=== PATIENT | male | born 1950 | race Caucasian/White ===

== ENCOUNTER → 2016-12-19 | Outpatient (CLI) | payer OTHER ==
[~2016-12-19] MED LIST: AMLO-114 PO; CHOL1TAB42 PO; CLON0.1T12 PO; DUTACAP PO; GLC/500 PO; LISI-786 PO; OMEG10007 PO
--- NOTE | 2017-01-13 12:39 | CODING QUERY MEDICAL NECESSITY ---
SUPPORTING DIAGNOSIS NEEDED A supporting diagnosis is required for the test/procedure performed on this patient in order for us to be reimbursed by the patient's insurance. Please provide a supporting diagnosis for the following test/procedure listed below next to the test name along with your signature. *If there is no additional diagnosis for this patient that would support the following test/procedure please document that below next to the test/procedure. Test(s)/Procedure(s) that require a supporting diagnosis: * PSA DIAGNOSIS: * DOS: 12/19/16 Provider Signature: Date: Thank you Addie Pastor [employer] Information Management Once completed, please kindly fax back to [phone] For questions please call [phone]
== END | disposition home or self-care (01) ==
LOC: C.LAB 19:27
PROVIDERS: ATTEND Urology
DX: Z13.220 Encounter for screening for lipoid disorders (principal); N40.1 Benign prostatic hyperplasia with lower urinary tract symptoms

== ENCOUNTER → 2017-01-23 | Outpatient (CLI) | payer OTHER ==
[2017-01-23 12:21] LABS: BLOOD UREA NITROGEN 18 mg/dl (7-18); BUN/CREATININE RATIO 19.8 (10-20); CALCIUM 8.9 mg/dl (8.5-10.1); CARBON DIOXIDE 29 mmol/L (21-32); CHLORIDE 105 mmol/L (98-107); CHOLESTEROL 195 mg/dl (0-200); CREATININE 0.89 mg/dl (0.60-1.40); GLUCOSE 139 mg/dl (70-99); POTASSIUM 3.5 mmol/L (3.5-5.1); SODIUM 142 mmol/L (136-145); TRIGLYCERIDES 151 mg/dl (0-150); VERY LOW DENSITY LIPOPROT CALC 30 mg/dl
[2017-01-23 12:24] LABS: CHOLESTEROL/HDL RATIO 5.6; HDL CHOLESTEROL 35 mg/dl; LDL CHOLESTEROL CALCULATED 130 mg/dl
[2017-01-23 13:06] LABS: ESTIMATED AVERAGE GLUCOSE 157 mg/dl; HA1C FLAG Normal (Normal)
== END | disposition home or self-care (01) ==
LOC: C.LABPVFM 08:17
PROVIDERS: ATTEND Nurse Practitioner
DX: I10 Essential (primary) hypertension (principal); E11.9 Type 2 diabetes mellitus without complications

== ENCOUNTER → 2017-01-28 | Outpatient (CLI) | payer OTHER, BC | END | disposition home or self-care (01) | LOC: C.LABPVFM 13:32 | PROVIDERS: ATTEND Nurse Practitioner | DX: Z11.59 Encounter for screening for other viral diseases (principal) ==

== ENCOUNTER → 2017-02-27 | Outpatient (CLI) | payer OTHER, BC | END | disposition home or self-care (01) | LOC: C.PATHSPEC 17:13 | PROVIDERS: ATTEND Urology | DX: C67.9 Malignant neoplasm of bladder, unspecified (principal) ==

== ENCOUNTER → 2017-07-21 | Day surgery (SDC) | payer OTHER, BC ==
[2017-06-30 07:48] VITALS: Ht 182.9 cm; Wt 113.6 kg
[~2017-07-21] VITALS: Ht 182.9 cm; Wt 113.6 kg
[~2017-07-21] MED LIST changes: +500ML BSS 0.3ML EPI 1:1000PF IRRIG ONE; +ACETAMINOPHEN 325 MG TAB PO PRN; +AMVISC PLUS 0.8ML SYRINGE INT OCU ONE; +ATROPINE SULFATE 0.1 MG/ML 5ML SYR IV PRN; +BRIMONIDINE TART 0.2% OP SOLN PER DROP CHARGE ONE; +BSS FLUSH ONE; +ENDOCOAT 0.85ML SYRINGE INT OCU ONE; +EpHEDrine SULFATE INJ 50 MG/ML AMP IV PRN; +EpINEphrine INJ 1MG/ML AMP 1 MG/ML AMP ONE; +FENTANYL CITRATE INJ 50 MCG/1 ML 2 ML VIAL ONE; +HydrALAZINE HCL 20 MG/ML VIAL ONE; +LACTATED RINGER'S 1000ML 500 ML IV SCH; +LIDOCAINE 4% OP SOLN DROP CHARGE ONE; +LIDOCAINE 4% OP SOLN DROP CHARGE OPL SCH; +LIDOCAINE HCL 1% MPF 2 ML VIAL ONE; +MIDAZOLAM HCL 1 MG/ML 2ML VIAL ONE; +MOXIFLOXACIN OPH SOLN PER DROP CHARGE ONE; +ONDANSETRON INJ 2 MG/ML 2 ML VIAL IV PRN; +POVIDONE-IODINE OP SOLN 30 ML BTL ONE; +PROPARACAINE 0.5% OP SOLN PER DROP CHARGE OPL SCH; +SODIUM CHLORIDE 0.9% INJ 10 ML VIAL ONE; +TOBRAMYCIN/DEXAMETHASONE OPH OINT PER APPLN CHARGE ONE
[2017-07-21] MEDS: PHENYLEPHRINE HCL 2.5% OP SOLN PER DROP CHARGE OPL SCH ×2 (08:00→08:11)
[2017-07-21] MEDS: TROPICAMIDE 1% OP SOLN PER DROP CHARGE OPL SCH ×2 (08:01→08:12)
[2017-07-21] MEDS: CYCLOPENTOLATE HCL 1% OP SOLN PER DROP CHARGE OPL SCH ×2 (08:02→08:13)
[2017-07-21] MEDS: KETOROLAC 0.5% OP SOLN PER DROP CHARGE OPL SCH ×2 (08:03→08:14)
[2017-07-21] MEDS: MOXIFLOXACIN OPH SOLN PER DROP CHARGE OPL SCH ×2 (08:05→08:16)
--- NOTE | 2017-07-21 08:09 | History & Physical Bridge - [place] ---
H&P Re-Evaluation Bridge Note: I have examined the patient, reviewed the History & Physical and in the interval since the performance of the History & Physical I have noted the following changes of clinical significance: No changes noted
--- NOTE | 2017-07-21 09:36 | Discharge Instructions-SurgCtr ---
Discharge Instructions Date of Service Jul 21, 2017. Visit Reason for Visit: Cataract Left Eye Discharge Discharge Diagnosis / Problem: cataract left eye Discharge Goals Goal(s): Improve function Medications Stopped Medications Name(s): held metformin for four days Activity Recommendations Activity Limitations: per Instructions/Follow-up section Lifting Limitations: no more than 5 pounds Anesthesia . Post Anesthesia Instructions: If you have had General Anesthesia or IV Sedation: * Do not drive today. * Resume driving when surgeon permits. * Do not make important decisions or sign legal documents today. * Call surgeon for: 1. Temperature elevations greater than 101 degrees F. 2. Uncontrollable pain. 3. Excessive bleeding. 4. Persistent nausea and vomiting. 5. Medication intolerance (nausea, vomiting or rash). * For nausea and vomiting use only clear liquids such as: tea, soda, bouillon until nausea subsides, then gradually increase diet as tolerated. * If you have any concerns or questions, call your surgeon's office. If physician is unavailable and it is an emergency, call 911 or go to the nearest emergency room. . Instructions / Follow-Up Instructions / Follow-Up ACTIVITY RECOMMENDATIONS: * Light activities * You may walk outside, read, watch television. * Mild irritation and blurred vision are common for the first few days, redness around the white part of the eye is common. MEDICATIONS: Resume previous medications unless instructed otherwise by your surgeon. Eye drops (today and tomorrow): Cipro - one drop in operative eye every 2 hours while awake Prednisolone 1% - one drop in operative eye every 2 hours while awake Ilevro - one drop operative eye 1 times daily SPECIAL CARE INSTRUCTIONS: * If any problems or concerns, please call Dr. Peters's office at . * Keep plastic shield taped over eye to sleep at night. * Keep plastic shield taped over eye except to administer eye drops. * Keep plastic shield on until office visit the following day. FOLLOW UP VISIT: Follow-up with Dr. Peters in the [place] office as scheduled. If not already scheduled, please call the office at . Diet Recommendations Home Diet: resume previous diet Procedures Procedures Performed: Left Cataract Phacoemulsification With Intraocular Lens Implant Pending Studies Studies pending at discharge: no Medical Emergencies . Who to Call and When: Medical Emergencies: If at any time you feel your situation is an emergency, please call 911 immediately. . Non-Emergent Contact Non-Emergency issues call your: Identity Management Developer . . "Provider Documentation" section prepared by Alberto Peters. .
--- NOTE | 2017-07-21 09:37 | [facility] Post Operative Brief Note ---
Immediate Operative Summary Operative Date Jul 21, 2017. Pre-Operative Diagnosis Left Eye Cataract Post-Operative Diagnosis Same Procedure(s) Performed Left Cataract Phacoemulsification With Intraocular Lens Implant and anterior vitrectomy Surgeon Dr Peters Cafeteria Cook Surgeon(s) None Estimated Blood Loss 0ml Findings cataract left eye Fluids (cc crystalloids) see anesthesia record Specimens None Drains none Anesthesia local with sedation Complication(s) None Disposition Recovery Room / PACU
[2017-07-21 09:38] VITALS: TEMP 36.7
--- NOTE | 2017-07-21 10:09 | Anesthesiology Progress Note ---
Anesthesia Post Op Note Date & Time Jul 21, 2017 at 10:08 Vital Signs Pain Intensity: 3 Vital Signs Past 12 Hours Date Time Temp Pulse Resp B/P (MAP) Pulse Ox O2 Delivery O2 Flow Rate FiO2 07/21/17 09:38 36.7 63 16 157/90 (112) 95 Room Air 07/21/17 07:40 36.8 62 20 174/94 (120) 96 Room Air Notes Mental Status: alert / awake / arousable, participated in evaluation Nausea / Vomiting: adequately controlled Pain: adequately controlled Airway Patency, RR, SpO2: stable & adequate BP & HR: stable & adequate Hydration State: stable & adequate Anesthetic Complications: no major complications apparent Anesthetic Complications: level of amnesia appropriate for MAC
[2017-07-21 10:10] VITALS: BP 133/79; PULSE 54; O2SAT 95
--- NOTE | 2017-07-21 10:32 | OPERATIVE REPORT ---
DATE OF OPERATION: 07/21/2017 PREOPERATIVE DIAGNOSIS: Cataract, left eye. POSTOPERATIVE DIAGNOSIS: Same. PROCEDURE PERFORMED: Phacoemulsification cataract extraction with anterior vitrectomy and intraocular lens placement, left eye. COMPLICATIONS: None. ESTIMATED BLOOD LOSS: None. ANESTHESIA: Local with sedation. DESCRIPTION OF PROCEDURE: After informed consent was obtained in the holding area, the patient was wheeled back to the operating room where cardiac monitoring leads and oxygen by nasal cannula was administered by anesthesia. Gentle IV sedation was given, and the patient's left eye was prepped and draped in usual sterile fashion. Wire lid speculum was placed in the left eye and the operating microscope swung into position. Using 0.12 forceps and a supersharp blade, a paracentesis port was made 2 o'clock hours away from the 3 o'clock position of patient's left eye. A 1% nonpreserved lidocaine was injected into the anterior chamber for anesthesia. A 2.0 mm keratome blade was then used to make a shelved clear cornea incision at the 3 o'clock position of the patient's left eye. The anterior chamber was filled with EndoCoat and Amvisc in a soft shell fashion and a curvilinear capsulorrhexis was performed with the cystotome and Utrata forceps. BSS on a hydrodissection cannula was then used to hydrodissect the lens nucleus away from the capsular bag. The phacoemulsification handpiece was then used in a stop and chop fashion. When the first crack was made dividing the lens in half, the lens was then rotated and 1 heminucleus started to dive south. It was rescued using viscoelastic to float it back into the anterior chamber and it was phacoemulsified. The second heminucleus was rescued in such a manner as well and phacoemulsified. An anterior vitrectomy was then carried out and inspection was done to observe for the anterior lens capsule. There did not seem to be enough support of the anterior lens capsule for a sulcus lens, so that the primary incision was enlarged and then a Bausch and Lomb L122 UV 15.0 Diopter anterior chamber lens was placed in the eye over top a lens glide. The lens glide was removed and the vitrector was used to make a peripheral iridotomy at the 6 o'clock position of the patient's left eye. 3 interrupted 10-0 nylon sutures were placed through the primary incision and the vitrector was used to remove the viscoelastic material from the anterior chamber. The wounds were hydrated and noted to be watertight. A wire lid speculum was removed from the eye. Vigamox, brimonidine and TobraDex ointment were placed on the eye and the eye was shielded. The patient tolerated the procedure well and was taken to recovery area in stable condition. I attest to the content of the Intraoperative Record and any orders documented therein. Any exceptions are noted below. MTDD
== END | disposition home or self-care (01) ==
LOC: X.SURG 07:27
PROVIDERS: ATTEND Ophthalmology
DX: H25.12 Age-related nuclear cataract, left eye (principal); E11.36 Type 2 diabetes mellitus with diabetic cataract; I10 Essential (primary) hypertension; Z87.891 Personal history of nicotine dependence; Z79.899 Other long term (current) drug therapy

== ENCOUNTER → 2017-07-29 | Outpatient (CLI) | payer OTHER, BC ==
[~2017-07-29] MED LIST changes: -500ML BSS 0.3ML EPI 1:1000PF IRRIG ONE; -ACETAMINOPHEN 325 MG TAB PO PRN; -AMVISC PLUS 0.8ML SYRINGE INT OCU ONE; -ATROPINE SULFATE 0.1 MG/ML 5ML SYR IV PRN; -BRIMONIDINE TART 0.2% OP SOLN PER DROP CHARGE ONE; -BSS FLUSH ONE; -ENDOCOAT 0.85ML SYRINGE INT OCU ONE; -EpHEDrine SULFATE INJ 50 MG/ML AMP IV PRN; -EpINEphrine INJ 1MG/ML AMP 1 MG/ML AMP ONE; -FENTANYL CITRATE INJ 50 MCG/1 ML 2 ML VIAL ONE; -HydrALAZINE HCL 20 MG/ML VIAL ONE; -LACTATED RINGER'S 1000ML 500 ML IV SCH; -LIDOCAINE 4% OP SOLN DROP CHARGE ONE; -LIDOCAINE 4% OP SOLN DROP CHARGE OPL SCH; -LIDOCAINE HCL 1% MPF 2 ML VIAL ONE; -MIDAZOLAM HCL 1 MG/ML 2ML VIAL ONE; -MOXIFLOXACIN OPH SOLN PER DROP CHARGE ONE; -ONDANSETRON INJ 2 MG/ML 2 ML VIAL IV PRN; -POVIDONE-IODINE OP SOLN 30 ML BTL ONE; -PROPARACAINE 0.5% OP SOLN PER DROP CHARGE OPL SCH; -SODIUM CHLORIDE 0.9% INJ 10 ML VIAL ONE; -TOBRAMYCIN/DEXAMETHASONE OPH OINT PER APPLN CHARGE ONE
[2017-07-29 18:19] LABS: BLOOD UREA NITROGEN 16 mg/dl (7-18); BUN/CREATININE RATIO 18.6 (10-20); CALCIUM 8.7 mg/dl (8.5-10.1); CARBON DIOXIDE 27 mmol/L (21-32); CHLORIDE 106 mmol/L (98-107); CREATININE 0.85 mg/dl (0.60-1.40); GLUCOSE 139 mg/dl (70-99); POTASSIUM 3.5 mmol/L (3.5-5.1); SODIUM 140 mmol/L (136-145)
[2017-07-30 06:16] LABS: ESTIMATED AVERAGE GLUCOSE 177 mg/dl; HA1C FLAG Normal (Normal)
== END | disposition home or self-care (01) ==
LOC: C.LABPVFM 15:16
PROVIDERS: ATTEND Nurse Practitioner
DX: I10 Essential (primary) hypertension (principal); E11.9 Type 2 diabetes mellitus without complications; E55.9 Vitamin D deficiency, unspecified

== ENCOUNTER → 2017-08-04 | Day surgery (SDC) | payer OTHER, BC ==
[2017-08-01 10:52] VITALS: Ht 182.9 cm; Wt 113.6 kg
[~2017-08-04] VITALS: Ht 182.9 cm; Wt 113.6 kg
[~2017-08-04] MED LIST changes: +500ML BSSPLUS 0.5ML EPI1:1000 IRRIG ONE; +ACETAMINOPHEN 325 MG TAB PO PRN; +ATROPINE SULFATE 0.1 MG/ML 5ML SYR IV PRN; +BSS FLUSH ONE; +BUPIVACAINE HCL 0.75% 10 ML AMP/VIAL ONE; +DEXAMETHASONE SOD INJ 4 MG/ML VIAL ONE; +EpHEDrine SULFATE 50MG/5ML SYR ONE; +EpHEDrine SULFATE INJ 50 MG/ML AMP IV PRN; +EpINEphrine INJ 1MG/ML AMP 1 MG/ML AMP ONE; +FENTANYL CITRATE INJ 50 MCG/1 ML 2 ML VIAL ONE; +HYALURONIDASE HUMAN 150 UNIT/ML INJ ONE; +LACTATED RINGER'S 1000ML 500 ML IV SCH; +LIDOCAINE HCL 2% 2 ML VIAL (20MG/ML) ONE; +MIDAZOLAM HCL 1 MG/ML 2ML VIAL ONE; +NEOMYCIN/POLYMYX/DEXAMETH OP OINT PER APP CHARGE ONE; +OCUCOAT 1 ML SOLN IO ONE; +ONDANSETRON INJ 2 MG/ML 2 ML VIAL ONE; +POVIDONE-IODINE OP SOLN (SURGERY CNTR CHARGING ONLY) ONE; +PROPARACAINE 0.5% OP SOLN PER DROP CHARGE OPL SCH; +PROPOFOL IV EMULSION 10 MG/ML 20 ML VIAL IV ONE; +TIMOLOL MALEATE 0.5% OP SOLN PER DROP CHARGE ONE; +VANCOMYCIN HCL 1000MG/20ML VIAL ONE
[2017-08-04] MEDS: PHENYLEPHRINE HCL 2.5% OP SOLN PER DROP CHARGE OPL SCH ×2 (10:38→10:43)
[2017-08-04] MEDS: TROPICAMIDE 1% OP SOLN PER DROP CHARGE OPL SCH ×2 (10:39→10:44)
--- NOTE | 2017-08-04 12:21 | Anesthesia Progress Nt - [facility] ---
Anesthesia Post Op Note Date & Time Aug 04, 2017 at 12:20 Vital Signs Pain Intensity: 2 Vital Signs Past 12 Hours Date Time Temp Pulse Resp B/P (MAP) Pulse Ox O2 Delivery O2 Flow Rate FiO2 08/04/17 10:30 36.5 66 16 174/92 (119) 95 Room Air Notes Mental Status: alert / awake / arousable, participated in evaluation Pt Amnestic to Procedure: Yes Nausea / Vomiting: adequately controlled Pain: adequately controlled Airway Patency, RR, SpO2: stable & adequate BP & HR: stable & adequate Hydration State: stable & adequate Anesthetic Complications: no major complications apparent Earlier entry was mistakenly premature. At 1400, pt is now in phase 2 ready for discharge.
--- NOTE | 2017-08-04 12:55 | [facility] Operative Report ---
Operative Report Date of Service Aug 04, 2017. Operative Report PREOPERATIVE DIAGNOSIS: Retained lens fragments, left eye. ICD10 CODE: H59.022 POSTOPERATIVE DIAGNOSIS: same. PROCEDURE: 1. Pars plana vitrectomy, 23 gauge. All to the left eye. CPT CODE: 24491 SURGEON: León Hernandes D.O. COMPLICATIONS: None. ESTIMATED BLOOD LOSS: None. SPECIMENS: None. ANESTHESIA: General with LMA and Retrobulbar block. INDICATIONS FOR PROCEDURE: Surgery is indicated to decrease risk of vision loss and potentially improve vision. CONSENT: The risks, benefits and alternatives were discussed with the patient including but not limited to decreased visual acuity, failure to achieve desired results, loss of the eye, infection, pain, glaucoma, lens changes, retinal tears, retinal detachment, the need for more procedures, drooping of the eyelid, blindness, and double vision. The patient is aware of risks and consents to the surgery. Consent is signed and on the chart. OPERATION AND FINDINGS: The patient was brought to the operating room where the patient was identified by name, date, and medical record number. The surgical site was confirmed with the informed written consent. The patient was placed under general anesthesia by the anesthesiology team after which a 50:50 mixture of 2% lidocaine and 0.75% bupivacaine with hyaluronidase was administered in a standard retrobulbar fashion. A total of 4 ml was administered without difficulty. The patient was then prepped and draped in the usual sterile manner for retinal surgery. A wire lid speculum was placed and an Jose De Jesus 23-gauge trocar cannula system was employed. The inferior nasal trocar cannula was first placed in an angled fashion 3.75mm posterior to the surgical limbus and the infusion cannula was inserted into this cannula after which the intravitreal position was verified prior to turning the infusion on. Two more trocar cannulas were then inserted in an angled fashion, one in the superior temporal, and one in the superior nasal quadrant both 3.75mm posterior to the surgical limbus. A light pipe and vitrector were then introduced into the eye and the BIOM wide angle viewing system was brought into place. Posterior inspection revealed retained cataract fragments. Standard core vitrectomy was performed the vitreous was insured to be totally detached from the posterior pole with the aid of the vitrector. There were also noted cataract remnants posterior to the iris and these were removed with the vitrector and iris was swept and no vitreous to the corneal wounds was found. At this point scleral depression was performed for 360 degrees and no retinal tears or detachments were noted. The trocar cannulas were then removed and found to be water tight. The intraocular pressure was found to be within normal limits by palpation and subconjunctival injections of vancomycin and dexamethasone were administered inferiorly and superiorly. The wire lid speculum was removed. Maxitrol was applied to the surface of the eye. A light patch and shield were taped over the surface of the eye and the patient left the Operating Room in stable condition having tolerated the procedure well. DISPOSITION: The patient has an appointment the following morning in the Ophthalmology Clinic. The patient is to call immediately if there are any problems overnight. I attest to the content of the Intraoperative Record and any orders documented therein. Any exceptions are noted below.
--- NOTE | 2017-08-04 12:56 | Discharge Instructions-SurgCtr ---
Discharge Instructions Date of Service Aug 04, 2017. Visit Reason for Visit: Retained Lens Discharge Discharge Diagnosis / Problem: same Discharge Goals Goal(s): Improve function Medications Stopped Medications Name(s): metformin stopped 2 days ago Activity Recommendations Activity Limitations: per Instructions/Follow-up section Anesthesia . Post Anesthesia Instructions: If you have had General Anesthesia or IV Sedation: * Do not drive today. * Resume driving when surgeon permits. * Do not make important decisions or sign legal documents today. * Call surgeon for: 1. Temperature elevations greater than 101 degrees F. 2. Uncontrollable pain. 3. Excessive bleeding. 4. Persistent nausea and vomiting. 5. Medication intolerance (nausea, vomiting or rash). * For nausea and vomiting use only clear liquids such as: tea, soda, bouillon until nausea subsides, then gradually increase diet as tolerated. * If you have any concerns or questions, call your surgeon's office. If physician is unavailable and it is an emergency, call 911 or go to the nearest emergency room. . Instructions / Follow-Up Instructions / Follow-Up * May take Tylenol if needed for discomfort. * Do NOT remove eye shield. * NO straining, heavy lifting (>15 pounds) or bending below waist. * Avoid getting water or soap directly into operative eye. * Do NOT rub eye. If you experience increasing eye pain not relieved by medication, please contact us immediately at [phone]. If you are unable to reach someone at the above number, call [phone] and ask to speak with the EYE DOCTOR AUDIO VISUAL PRODUCTION SPECIALIST. Inform them that you are a Dr. Hernandes patient who had recent surgery. Diet Recommendations Home Diet: resume previous diet Procedures Procedures Performed: Left Eye Vitrectomy 23 Gauge for Retained Lens Pending Studies Studies pending at discharge: no Medical Emergencies . Who to Call and When: Medical Emergencies: If at any time you feel your situation is an emergency, please call 911 immediately. . Non-Emergent Contact Non-Emergency issues call your: Mcat Instructor . . "Provider Documentation" section prepared by León Hernandes. .
[2017-08-04 13:50] VITALS: BP 174/94; PULSE 57; TEMP 36.3; O2SAT 96
== END | disposition home or self-care (01) ==
LOC: X.SURG 10:14
PROVIDERS: ATTEND Ophthalmology
DX: H59.022 Cataract (lens) fragments in eye following cataract surgery, left eye (principal); I10 Essential (primary) hypertension; E11.9 Type 2 diabetes mellitus without complications; Z87.891 Personal history of nicotine dependence; Z68.34 Body mass index [BMI] 34.0-34.9, adult; Z98.890 Other specified postprocedural states; E66.9 Obesity, unspecified; Z80.0 Family history of malignant neoplasm of digestive organs

== ENCOUNTER → 2017-11-17 | Day surgery (SDC) | payer OTHER, BC ==
[2017-10-13 14:31] VITALS: Ht 182.9 cm; Wt 113.6 kg
[~2017-11-17] VITALS: Ht 182.9 cm; Wt 113.6 kg
[~2017-11-17] MED LIST changes: +500ML BSS 0.3ML EPI 1:1000PF IRRIG ONE; -500ML BSSPLUS 0.5ML EPI1:1000 IRRIG ONE; +AMVISC PLUS 0.8ML SYRINGE INT OCU ONE; +BRIMONIDINE TART 0.2% OP SOLN PER DROP CHARGE ONE; -BUPIVACAINE HCL 0.75% 10 ML AMP/VIAL ONE; -DEXAMETHASONE SOD INJ 4 MG/ML VIAL ONE; +ENDOCOAT 0.85ML SYRINGE INT OCU ONE; -EpHEDrine SULFATE 50MG/5ML SYR ONE; -HYALURONIDASE HUMAN 150 UNIT/ML INJ ONE; +LIDOCAINE 4% OP SOLN DROP CHARGE ONE; +LIDOCAINE 4% OP SOLN DROP CHARGE OPR SCH; +LIDOCAINE HCL 1% MPF 2 ML VIAL ONE; +MIX: 3ML BSS AND 1ML EPI(PF) TOP ONE; +MOXIFLOXACIN OPH SOLN PER DROP CHARGE ONE; -NEOMYCIN/POLYMYX/DEXAMETH OP OINT PER APP CHARGE ONE; -OCUCOAT 1 ML SOLN IO ONE; -POVIDONE-IODINE OP SOLN (SURGERY CNTR CHARGING ONLY) ONE; +POVIDONE-IODINE OP SOLN 30 ML BTL ONE; -PROPARACAINE 0.5% OP SOLN PER DROP CHARGE OPL SCH; +PROPARACAINE 0.5% OP SOLN PER DROP CHARGE OPR SCH; -TIMOLOL MALEATE 0.5% OP SOLN PER DROP CHARGE ONE; +TOBRAMYCIN/DEXAMETHASONE OPH OINT PER APPLN CHARGE ONE; -VANCOMYCIN HCL 1000MG/20ML VIAL ONE
[2017-11-17] MEDS: PHENYLEPHRINE HCL 2.5% OP SOLN PER DROP CHARGE OPR SCH ×2 (10:10→10:15)
[2017-11-17] MEDS: TROPICAMIDE 1% OP SOLN PER DROP CHARGE OPR SCH ×2 (10:11→10:16)
[2017-11-17] MEDS: CYCLOPENTOLATE HCL 1% OP SOLN PER DROP CHARGE OPR SCH ×2 (10:12→10:17)
[2017-11-17] MEDS: KETOROLAC 0.5% OP SOLN PER DROP CHARGE OPR SCH ×2 (10:13→10:18)
[2017-11-17] MEDS: MOXIFLOXACIN OPH SOLN PER DROP CHARGE OPR SCH ×2 (10:14→10:24)
--- NOTE | 2017-11-17 11:57 | [facility] Operative Report ---
Operative Report Operative Date Nov 17, 2017. Pre-Operative Diagnosis Cataract Right Eye Post-Operative Diagnosis Same Procedure(s) Performed Right Cataract Phacoemulsification With Intraocular Lens Implant Surgeon Dr. Peters Wildlife Biostation Research Ecologist Surgeon(s) None Estimated Blood Loss 0 Findings cataract right eye Fluids (cc crystalloids) see anesthesia record Specimens None Drains none Anesthesia local with General LMA Complication(s) None Disposition Recovery Room / PACU Implants [id number] 17.5 Indications decreased vision right eye Description of Procedure After informed consent was obtained in the holding area the patient was wheeled back to the operating room where cardiac monitoring leads and general anesthesia was administered by Anesthesia. The patient's right eye was prepped and draped in usual sterile fashion. A wire lid speculum was placed into the right eye and the operating microscope was swung into position. Using 0.12 forceps and a Supersharp blade a paracentesis port was made 2 o'clock hours away from the 9 o'clock position of the patient's right eye. 1% non-preserved Lidocaine was then injected into the anterior chamber for anesthesia. A 2.0 mm keratotome blade was then used to make a shelved clear corneal incision at the 9 o'clock position of the right eye. Amvisc was injected into the anterior chamber and a cystotome and Utrata forceps were used to perform a curvilinear capsulorrhexis. BSS on a hydrodissection cannula was used to hydrodissect the lens nucleus away from the capsular bag. The phacoemulsification handpiece was then used in a stop and chop fashion to remove the lens nucleus. The irrigation and aspiration handpiece was then used to remove the residual cortical material. Amvisc was injected into the capsular bag and anterior chamber and a Bausch & Lomb MX60 17.5 Diopter intraocular lens was injected into the capsular bag. Irrigation and aspiration handpiece was used to remove the residual viscoelastic material. The wounds were hydrated and noted to be watertight. The wire lid speculum was removed from the eye. Vigamox, Brimonidine, and TobraDex ointment were placed on the eye and it was shielded. It should be noted that EndoCoat was used extensively during the case to protect the cornea endothelium. DISPOSITION: The patient tolerated the procedure well, was extubated, and was wheeled to the post anesthesia care unit in stable condition. I attest to the content of the Intraoperative Record and any orders documented therein. Any exceptions are noted below. I attest to the content of the Intraoperative Record and any orders documented therein. Any exceptions are noted below.
--- NOTE | 2017-11-17 11:59 | Discharge Instructions-SurgCtr ---
Discharge Instructions Date of Service Nov 17, 2017. Visit Reason for Visit: Right Cataract Discharge Discharge Diagnosis / Problem: cataract right eye Discharge Goals Goal(s): Improve function Medications Stopped Medications Name(s): METFORMIN STOPPED ON FRIDAY Activity Recommendations Activity Limitations: per Instructions/Follow-up section Lifting Limitations: no more than 5 pounds Anesthesia . Post Anesthesia Instructions: If you have had General Anesthesia or IV Sedation: * Do not drive today. * Resume driving when surgeon permits. * Do not make important decisions or sign legal documents today. * Call surgeon for: 1. Temperature elevations greater than 101 degrees F. 2. Uncontrollable pain. 3. Excessive bleeding. 4. Persistent nausea and vomiting. 5. Medication intolerance (nausea, vomiting or rash). * For nausea and vomiting use only clear liquids such as: tea, soda, bouillon until nausea subsides, then gradually increase diet as tolerated. * If you have any concerns or questions, call your surgeon's office. If physician is unavailable and it is an emergency, call 911 or go to the nearest emergency room. . Instructions / Follow-Up Instructions / Follow-Up ACTIVITY RECOMMENDATIONS: * Light activities * You may walk outside, read, watch television. * Mild irritation and blurred vision are common for the first few days, redness around the white part of the eye is common. MEDICATIONS: Resume previous medications unless instructed otherwise by your surgeon. Eye drops (today and tomorrow): Cipro - one drop in operative eye every 2 hours while awake Prednisolone 1% - one drop in operative eye every 2 hours while awake Bromfenac - one drop in operative eye once daily SPECIAL CARE INSTRUCTIONS: * If any problems or concerns, please call Dr. Peters's office at . * Keep plastic shield taped over eye to sleep at night. * Keep plastic shield taped over eye except to administer eye drops. * Keep plastic shield on until office visit the following day. FOLLOW UP VISIT: Follow-up with Dr. Peters in the [place] office as scheduled. If not already scheduled, please call the office at . Diet Recommendations Home Diet: resume previous diet Procedures Procedures Performed: Right Cataract Phacoemulsification With Intraocular Lens Implant Pending Studies Studies pending at discharge: no Medical Emergencies . Who to Call and When: Medical Emergencies: If at any time you feel your situation is an emergency, please call 911 immediately. . Non-Emergent Contact Non-Emergency issues call your: Irrigator . . "Provider Documentation" section prepared by Alberto Peters. .
[2017-11-17 12:42] VITALS: TEMP 36.6
[2017-11-17 13:10] VITALS: BP 159/85; PULSE 54; O2SAT 94
--- NOTE | 2017-11-17 13:20 | Anesthesia Progress Nt - [facility] ---
Anesthesia Post Op Note Date & Time Nov 17, 2017 at 13:20 Vital Signs Pain Intensity: 0 Vital Signs Past 12 Hours Date Time Temp Pulse Resp B/P (MAP) Pulse Ox O2 Delivery O2 Flow Rate FiO2 11/17/17 13:10 54 18 159/85 (109) 94 Room Air 11/17/17 12:42 36.6 54 18 178/95 (122) 94 Room Air 11/17/17 12:36 36.4 56 16 147/84 97 Room Air 11/17/17 12:30 153/84 11/17/17 12:28 60 12 11/17/17 12:28 60 12 96 11/17/17 12:26 147/82 11/17/17 12:23 57 25 144/81 96 11/17/17 12:23 58 25 11/17/17 12:20 170/110 11/17/17 12:18 59 17 96 11/17/17 12:18 58 17 11/17/17 12:15 163/98 11/17/17 12:13 63 23 95 11/17/17 12:13 63 23 11/17/17 12:12 165/108 11/17/17 12:08 64 18 11/17/17 12:08 64 18 94 11/17/17 12:05 124/99 11/17/17 12:05 36.5 65 16 139/80 98 Nasal Cannula 3 11/17/17 12:04 139/80 11/17/17 12:03 65 25 11/17/17 12:03 65 25 95 11/17/17 10:01 36.8 60 22 155/90 (111) 93 Room Air Notes Mental Status: alert / awake / arousable, participated in evaluation Pt Amnestic to Procedure: Yes Nausea / Vomiting: adequately controlled Pain: adequately controlled Airway Patency, RR, SpO2: stable & adequate BP & HR: stable & adequate Hydration State: stable & adequate Anesthetic Complications: no major complications apparent
== END | disposition home or self-care (01) ==
LOC: X.SURG 09:48
PROVIDERS: ATTEND Ophthalmology
DX: H26.9 Unspecified cataract (principal); E66.9 Obesity, unspecified; Z68.34 Body mass index [BMI] 34.0-34.9, adult; Z98.49 Cataract extraction status, unspecified eye; Z88.1 Allergy status to other antibiotic agents; Z98.890 Other specified postprocedural states; Z87.891 Personal history of nicotine dependence; Z85.828 Personal history of other malignant neoplasm of skin

== ENCOUNTER → 2018-01-29 | Outpatient (CLI) | payer OTHER, BC ==
[~2018-01-29] MED LIST changes: -500ML BSS 0.3ML EPI 1:1000PF IRRIG ONE; -ACETAMINOPHEN 325 MG TAB PO PRN; -AMVISC PLUS 0.8ML SYRINGE INT OCU ONE; -ATROPINE SULFATE 0.1 MG/ML 5ML SYR IV PRN; -BRIMONIDINE TART 0.2% OP SOLN PER DROP CHARGE ONE; -BSS FLUSH ONE; -ENDOCOAT 0.85ML SYRINGE INT OCU ONE; -EpHEDrine SULFATE INJ 50 MG/ML AMP IV PRN; -EpINEphrine INJ 1MG/ML AMP 1 MG/ML AMP ONE; -FENTANYL CITRATE INJ 50 MCG/1 ML 2 ML VIAL ONE; -LACTATED RINGER'S 1000ML 500 ML IV SCH; -LIDOCAINE 4% OP SOLN DROP CHARGE ONE; -LIDOCAINE 4% OP SOLN DROP CHARGE OPR SCH; -LIDOCAINE HCL 1% MPF 2 ML VIAL ONE; -LIDOCAINE HCL 2% 2 ML VIAL (20MG/ML) ONE; -MIDAZOLAM HCL 1 MG/ML 2ML VIAL ONE; -MIX: 3ML BSS AND 1ML EPI(PF) TOP ONE; -MOXIFLOXACIN OPH SOLN PER DROP CHARGE ONE; -ONDANSETRON INJ 2 MG/ML 2 ML VIAL ONE; -POVIDONE-IODINE OP SOLN 30 ML BTL ONE; -PROPARACAINE 0.5% OP SOLN PER DROP CHARGE OPR SCH; -PROPOFOL IV EMULSION 10 MG/ML 20 ML VIAL IV ONE; -TOBRAMYCIN/DEXAMETHASONE OPH OINT PER APPLN CHARGE ONE
[2018-01-29 10:30] LABS: HEMOGLOBIN A1C 7.2 % (4.5-5.6)
[2018-01-29 10:39] LABS: BLOOD UREA NITROGEN 12 mg/dl (7-18); CALCIUM 8.4 mg/dl (8.5-10.1); CARBON DIOXIDE 27 mmol/L (21-32); CHOLESTEROL 169 mg/dl (0-200); CREATININE 0.83 mg/dl (0.60-1.40); GLUCOSE 139 mg/dl (70-99); POTASSIUM 3.3 mmol/L (3.5-5.1); SODIUM 139 mmol/L (136-145)
[2018-01-29 10:55] LABS: LDL CHOLESTEROL CALCULATED 111 mg/dl
== END | disposition home or self-care (01) ==
LOC: C.LAB 07:00
PROVIDERS: ATTEND Nurse Practitioner
DX: Z00.00 Encounter for general adult medical examination without abnormal findings (principal); E11.9 Type 2 diabetes mellitus without complications; I10 Essential (primary) hypertension; C67.9 Malignant neoplasm of bladder, unspecified

== ENCOUNTER → 2018-02-10 | Outpatient (CLI) | payer OTHER, BC | END | disposition home or self-care (01) | LOC: C.PATHSPEC 11:25 | PROVIDERS: ATTEND Urology | DX: C67.9 Malignant neoplasm of bladder, unspecified (principal) ==

== ENCOUNTER 2020-04-06 05:08 | Inpatient (IN) ==
--- NOTE | 2020-01-27 14:40 | Anesthesiology Consultation ---
Date of Service January 27, 2020 Assessment & Plan (1) Encounter for pre-operative examination: Chart Review Chart Review: Pending: Refer to Additional Notes / Consult section (updated preop labs ) and Patient NOT seen in Pre Admission Testing Pt was a reschedule for surgery from 01/20/20 (was seen in PAT 12/06/19)- will need updated preop labs prior to surgery. Seen by PCP 01/06/20= "I personally reviewed the chest x-ray, EKG results as well as labs. Reviewed the patient's medication list. Patient is cleared for surgery." PCP expecting blood sugars to be mild elevated post op and throughout recovery process. He is to continue to monitor and call PCP if consistently >200- otherwise continue current medication. EKG stable from last year. History Surgery Operation Date: 02/17/20 09:15 Proposed Procedures p Right Total Knee Arthroplasty - Aren Trejo MD Height/Weight Height: 6 ft Weight: 106.594 kg Allergies Allergy/AdvReac Type Severity Reaction Status Date / Time amoxicillin Allergy Intermediate MOUTH SORES Verified 01/21/20 08:43 Medications Home Medications Medication Instructions Recorded Confirmed Last Taken cholecalciferol (vitamin D3) 5,000 unit PO BID 12/03/18 01/06/20 Unknown [Vitamin D3] clonidine HCl 0.1 mg PO HS 12/03/18 01/06/20 Unknown dutasteride-tamsulosin 1 cap PO QAM 12/03/18 01/06/20 Unknown loratadine [Claritin] 10 mg PO QAM 12/03/18 01/06/20 Unknown omega 1-img-ilx-fish oil [Fish Oil] 1 cap PO HS 12/03/18 01/06/20 Unknown ascorbate calcium-bioflavonoid 1 tab PO QPM 01/14/19 01/06/20 Unknown [Monique-C with Bioflavonoids] potassium chloride 10 mEq 10 meq PO DAILY #90 tab 04/12/19 01/06/20 Unknown tablet,extended release timolol maleate 0.25 % eye drops 1 drp OP UD ml 07/20/19 01/06/20 Unknown lancets 33 gauge #100 ea 08/02/19 01/06/20 Unknown blood sugar diagnostic See Rx Instructions .ROUTE 09/09/19 01/06/20 Unknown .COMPLEX PRN #100 strip amlodipine 10 mg PO HS 11/30/19 01/06/20 Unknown glucos sul [id number]-[id number]-rrbrg-C-Mn 1 cap PO PM 11/30/19 01/06/20 Unknown [Glucosamine Chondroitin] lisinopril-hydrochlorothiazide 1 tab PO QAM 11/30/19 01/06/20 Unknown multivitamin 1 tab PO DAILY 11/30/19 01/06/20 Unknown dulaglutide 0.75 mg/0.5 mL See Rx Instructions .ROUTE 12/17/19 01/21/20 Unknown subcutaneous pen injector .COMPLEX #4 milliliter Past Medical History Medical History (Updated 01/27/20 @ 14:44 by Yaritza Knight PA-C) Bladder cancer Dx'ed 2000- s/p TURBT 2000 and 2010 BPH (benign prostatic hyperplasia) Cancer BCC --> MOHS Diabetes mellitus TYPE 2; NIDDM HTN (hypertension) Knee pain Obesity Past Family History Family History Mother Family history of diabetes mellitus Colorectal cancer Hypertension Gastric adenocarcinoma Denies family history of Ovarian cancer Prostate cancer Myocardial infarction Breast cancer Past Surgical History Surgical History (Updated 01/27/20 @ 14:44 by Yaritza Knight PA-C) H/O oral surgery GROWTH REMOVED (BENIGN) History of arthroscopy of right knee History of biopsy of bladder History of bladder surgery TURBT X 2 (MALIGNANT 2000, BENIGN 2010) History of cataract extraction BILATERAL History of colonoscopy History of cystoscopy History of hernia repair INGUINAL HERNIA REPAIR (RIGHT) History of tonsillectomy S/P Mohs surgery for basal cell carcinoma Social History Smoking Status: Former smoker tobacco type: cigarettes Do You Dip or Chew Tobacco: No Smoking End Date: 20 years ago Hx Alcohol Use: Yes Alcohol type: beer alcohol intake frequency: holidays/special occasions only Hx Substance Use: No substance use type: does not use Testing Electrocardiogram Date: 12/06/19 Sinus rhythm at 61 bpm with premature atrial complexes. Septal infarct cited on or before January 18, 2019. When compared to EKG from January 18, 2019 PACs are now present. Chest X-Ray Date: 12/06/19 Findings: + NAD Echocardiogram Date: 02/03/19 EF: 50-55% LV Function: normal RWMA: + none Other Findings: + LVH (concentric- moderate ) Valvular Disease: + no significant valvular disease Grade I diastolic dysfunction
--- NOTE | 2020-04-03 16:03 | History & Physical Report ---
"Date of Service April 03, 2020 Assessment & Plan (1) Primary osteoarthritis of right knee: Treatment options discussed. Patient has failed conservative therapy as above. Plan is for right total knee arthroplasty on 04/06/20 at [facility]. Risks, benefits and alternatives to surgery including but not limited to infection, DVT, pain, stiffness, need for revision surgery, damage to blood vessels, damage to nerves, PE, , were discussed with the patient and they wish to proceed. Will plan on aspirin 81mg BID x 30d for DVT prophylaxis. Will plan on HHPT upon discharge. All questions answered. He will follow up post operatively. COVID status unknown. History of Present Illness Chief Complaint: Right knee pain Primary Care Provider: AMBERLY Titus Patient is a 69 year old male with PMHx significant for HTN, DM2, BPH, bladder ca with long standing history of right knee pain. He has failed conservative therapy including cortisone injections, visco injections, and antiinflammatories. His pain is affecting his ability to carry out normal daily activities. He would like to proceed with right knee replacement. He had been previously scheduled for surgery last year but was cancelled due to an elevated A1c. This has come down and is now less than 7.5 and he would like to proceed with surgery. Patient denies headaches, sweats, fevers, chills, double vision, blurred vision, cough, sore throat, dysphagia, chest pain, sob, wheezing, n/v/d/c, numbness, tingling, fatigue, urinary symptoms, mood disorders. ROS positive for right knee pain and stiffness. Allergies Allergy/AdvReac Type Severity Reaction Status Date / Time amoxicillin Allergy Intermediate MOUTH SORES Verified 03/31/20 14:08 Home Medications Home Medications Medication Instructions Recorded Confirmed Type cholecalciferol (vitamin D3) 5,000 unit PO BID 12/03/18 03/31/20 History [Vitamin D3] clonidine HCl 0.1 mg PO HS 12/03/18 03/31/20 History loratadine [Claritin] 10 mg PO QAM 12/03/18 03/31/20 History omega 2-lsr-nno-fish oil [Fish Oil] 1 cap PO HS 12/03/18 03/31/20 History ascorbate calcium-bioflavonoid 1 tab PO QPM 01/14/19 03/31/20 History [Monique-C with Bioflavonoids] potassium chloride 10 mEq 10 meq PO DAILY #90 tab 04/12/19 03/31/20 Rx tablet,extended release timolol maleate 0.25 % eye drops 1 drp OP UD ml 07/20/19 03/31/20 History lancets 33 gauge #100 ea 08/02/19 01/06/20 Rx blood sugar diagnostic See Rx Instructions .ROUTE 09/09/19 03/31/20 Rx .COMPLEX PRN #100 strip amlodipine 10 mg PO HS 11/30/19 03/31/20 History glucos sul 4WLv-ivq-ieaax-C-Mn 1 cap PO PM 11/30/19 03/31/20 History [Glucosamine Chondroitin] lisinopril-hydrochlorothiazide 1 tab PO QAM 11/30/19 03/31/20 History multivitamin 1 tab PO QPM 11/30/19 03/31/20 History dulaglutide 0.75 mg/0.5 mL See Rx Instructions .ROUTE 12/17/19 03/31/20 Rx subcutaneous pen injector .COMPLEX #4 milliliter dutasteride-tamsulosin 1 cap PO QAM 03/31/20 03/31/20 History Past Med/Surg History Family History Mother Family history of diabetes mellitus Colorectal cancer Hypertension Gastric adenocarcinoma Denies family history of Ovarian cancer Prostate cancer Myocardial infarction Breast cancer Social History Preferred Language: Lebanese Communication Ability: Effective Business Continuity Manager Required: No Beliefs That Will Affect Care: None Current Living Situation: Significant Other Feels Safe at Home: Yes Smoking Status: Former smoker Tobacco Type: cigarettes ; Second Hand Exposure: Yes ( A CHILD) ; Hx Alcohol Use: Yes Alcohol type: beer Hx Substance Use: No Seatbelt Use: always Review of Systems All systems reviewed & are unremarkable except as noted in HPI & below Physical Exam Constitutional: well developed and well nourished; no acute distress Eyes: PERRL, conjunctivae normal, anicteric sclerae ENMT: external ear and nose normal, oropharynx normal Neck: trachea midline, no thyromegaly Respiratory: normal respiratory effort, lungs clear to auscultation Cardiovascular: RRR, no murmur, no edema Musculoskeletal: Right knee: ROM 0-120, tenderness medial joint line. Stable to valgus and varus stress tests. Positive Eli's. Skin: no rashes, warm and dry Neurologic: patellar DTR's 2+ bilat, sensation intact Psychiatric: A+Ox3, euthymic affect Results & Data Laboratory Results [facility] [address] [place] [address] / Director: Aren Ramos M.D. Clinical Laboratory Report Name: SUNI MCFARLAND Acct: [id number] Status: REG CLI : 1950 [facility] [place] Date: 04/03/20 Age: 69 Sex: M Dis Date: Loc: Laboratory Main [place] Spec : [id number] Collected: 04/03/20 Received: 04/03/[address]: Aren Trejo M.D. Copy To: Yue Emerson CRNP Ordered: CBCD Test Result Flag Reference Site WBC | 6.36 | | 4.8-10.8 K/uL | RBC | 5.41 | | 4.7-6.1 M/uL | Hgb | 17.0 | | 14.0-18.0 g/dL | Hct | 49.0 | | 42-52 % | MCV | 90.6 | | 80-100 fL | MCH | 31.4 | | 25-34 pg | MCHC | 34.7 | | 32-36 g/dL | RDW Std Dev | 46.5 | H | 36.4-46.3 fL | RDW Coeff Johnson | 14.1 | | 11.5-14.5 % | Plt | 163 | | 130-400 K/uL | MPV | 11.4 | H | 7.4-10.4 fL | Neut % (auto) | 59.5 | | % | Lymp % (auto) | 27.4 | | % | [place] % (auto) | 6.9 | | % | Eos % (auto) | 5.2 | | % | Baso % (auto) | 0.8 | | % | Imm Gran % (aut | 0.2 | | % | | IG parameter reflects the combination of Metas, Myelos and | Promyelocytes. Neut # (auto) | 3.79 | | 1.4-6.5 K/uL | Lymph # (auto) | 1.74 | | 1.2-3.4 K/uL | [place] # (auto) | 0.44 | | 0.11-0.59 K/uL | Eos # (auto) | 0.33 | | 0-0.5 K/uL | Baso # (auto) | 0.05 | | 0-0.2 K/uL | Imm Gran # (aut | 0.01 | | 0.00-0.02 K/uL | [place] [address] / Director: Aren Ramos M.D. Clinical Laboratory Report Name: SUNI MCFARLAND Acct: [id number] Status: REG CLI : 1950 [facility] [place] Date: 04/03/20 Age: 69 Sex: M Dis Date: Loc: Laboratory Main [place] Spec : [id number] Collected: 04/03/20 Received: 04/03/[address]: Aren Trejo M.D. Copy To: Yue Emerson CRNP Ordered: HGB A1C Test Result Flag Reference Site HGB A1C | 5.7 | H | 4.5-5.6 % | | A1C Value Interpretation | -------- | < 5.7 Normal | 5.7 - 6.0 Abnormal - High Risk of Diabetes | 6.1 - 6.4 Abnormal - Very High Risk of Diabetes | > or = 6.5 Consistent with Diabetes | | Initial values of greater than or equal to 6.5 should be | repeated to confirm diagnosis of diabetes. Glucose criteria | for diagnosis of diabetes should be used in and | anemic patients. EAG | 117 | | mg/dl | Name: SUNI MCFARLAND : 1950 PAGE 1 Printed: 04/03/20 [id number] END OF REPORT Diagnostic Findings Right knee: Significant degenerative change medial compartment bone on bone, with osteophyte formation off of the medial femoral condyle and medial tibial plateau with subchondral sclerotic and cystic change. Mild subluxation of the femur."
--- NOTE | 2020-04-05 08:30 | Anesthesiology Consultation ---
Date of Service April 05, 2020 Assessment & Plan (1) Encounter for pre-operative examination: Chart Review Chart Review: Acceptable Risk for Surgery (pending labs AM of surgery ) and Patient NOT seen in Pre Admission Testing - Check BSG AM DOS -PRP not updated with preop labs- will order for AM of surgery Per nursing assessment, in the past month patient has only traveled to [facility]. No known contact with PUIs or Covid positive people. No current Covid related symptoms or history of Covid testing. Dr. Horvath reviewed and deems patient low risk at this time- will need reassessed DOS. Seen by PCP 01/06/20= "I personally reviewed the chest x-ray, EKG results as well as labs. Reviewed the patient's medication list. Patient is cleared for surgery." PCP expecting blood sugars to be mild elevated post op and throughout recovery process. He is to continue to monitor and call PCP if consistently >200- otherwise continue current medication. EKG stable from last year. History Surgery Operation Date: 04/06/20 07:00 Proposed Procedures p Right Total Knee Arthroplasty - Aren Trejo MD Height/Weight Height: 5 ft 6 in Weight: 77.111 kg Allergies Allergy/AdvReac Type Severity Reaction Status Date / Time amoxicillin Allergy Intermediate MOUTH SORES Verified 03/31/20 14:08 Medications Home Medications Medication Instructions Recorded Confirmed Last Taken cholecalciferol (vitamin D3) 5,000 unit PO BID 12/03/18 03/31/20 Unknown [Vitamin D3] clonidine HCl 0.1 mg PO HS 12/03/18 03/31/20 Unknown loratadine [Claritin] 10 mg PO QAM 12/03/18 03/31/20 Unknown omega 2-zmu-yov-fish oil [Fish Oil] 1 cap PO HS 12/03/18 03/31/20 Unknown ascorbate calcium-bioflavonoid 1 tab PO QPM 01/14/19 03/31/20 Unknown [Monique-C with Bioflavonoids] potassium chloride 10 mEq 10 meq PO DAILY #90 tab 04/12/19 03/31/20 Unknown tablet,extended release timolol maleate 0.25 % eye drops 1 drp OP UD ml 07/20/19 03/31/20 Unknown lancets 33 gauge #100 ea 08/02/19 01/06/20 Unknown blood sugar diagnostic See Rx Instructions .ROUTE 09/09/19 03/31/20 Unknown .COMPLEX PRN #100 strip amlodipine 10 mg PO HS 11/30/19 03/31/20 Unknown glucos sul 7JVk-qqy-giplh-C-Mn 1 cap PO PM 11/30/19 03/31/20 Unknown [Glucosamine Chondroitin] lisinopril-hydrochlorothiazide 1 tab PO QAM 11/30/19 03/31/20 Unknown multivitamin 1 tab PO QPM 11/30/19 03/31/20 Unknown dulaglutide 0.75 mg/0.5 mL See Rx Instructions .ROUTE 12/17/19 03/31/20 Unknown subcutaneous pen injector .COMPLEX #4 milliliter dutasteride-tamsulosin 1 cap PO QAM 03/31/20 03/31/20 Unknown Past Medical History Medical History (Updated 04/05/20 @ 08:27 by Yaritza Knight PA-C) Bladder cancer Dx'ed 2000- s/p TURBT 2000 and 2010 BPH (benign prostatic hyperplasia) Cancer BCC --> MOHS Diabetes mellitus TYPE 2; NIDDM HTN (hypertension) Obesity Past Family History Family History Mother Family history of diabetes mellitus Colorectal cancer Hypertension Gastric adenocarcinoma Denies family history of Ovarian cancer Prostate cancer Myocardial infarction Breast cancer Past Surgical History Surgical History (Updated 04/05/20 @ 08:28 by Yaritza Knight PA-C) H/O oral surgery GROWTH REMOVED (BENIGN) History of arthroscopy of right knee History of biopsy of bladder History of bladder surgery TURBT X 2 (MALIGNANT 2000, BENIGN 2010) History of cataract extraction BILATERAL History of colonoscopy History of cystoscopy History of hernia repair INGUINAL HERNIA REPAIR (RIGHT) History of tonsillectomy S/P Mohs surgery for basal cell carcinoma Social History Smoking Status: Former smoker tobacco type: cigarettes Do You Dip or Chew Tobacco: No Smoking End Date: QUIT 20 YRS AGO Hx Alcohol Use: Yes Alcohol type: beer alcohol intake frequency: holidays/special occasions only Hx Substance Use: No substance use type: does not use Testing Laboratory Results Laboratory Tests 04/03/20 04/03/20 04/03/20 11:37 11:37 11:37 WBC 6.36 Hgb 17.0 Hct 49.0 Plt Count 163 PT 10.5 INR 1.0 APTT 29.5 Hemoglobin A1c 5.7 H 04/03/20 UA= Negative Electrocardiogram Date: 12/06/19 Sinus rhythm at 61 bpm with premature atrial complexes. Septal infarct cited on or before January 18, 2019. When compared to EKG from January 18, 2019 PACs are now present. (Septal infarct pattern present since at least 01/2019- had subsequent ECHO and was seen by cardio 02/2019 and found to be acceptable risk for February 2019 surgery) Chest X-Ray Date: 12/06/19 Findings: + NAD Echocardiogram Date: 02/03/19 EF: 50-55% LV Function: normal RWMA: + none Other Findings: + LVH (concentric- moderate ) Valvular Disease: + no significant valvular disease Grade I diastolic dysfunction
[~2020-04-06 05:08] MED LIST changes: -AMLO-114 PO; -CHOL1TAB42 PO; -CLON0.1T12 PO; -DUTACAP PO; -GLC/500 PO; -LISI-786 PO; +MISSING PHYSICIAN SIGNATURE ON ORDER SCH; -OMEG10007 PO
[2020-04-06] MEDS ORDERED: CeleBREX 200 MG CAP ONE (05:48)
[2020-04-06] MEDS ORDERED: dexAMETHasone 4 MG TAB PO ONE (05:48)
[2020-04-06] MEDS ORDERED: METOCLOPRAMIDE HCL 10 MG TABLET ONE (05:49)
[2020-04-06] MEDS ORDERED: FAMOTIDINE 20 MG TAB ONE (05:49)
[2020-04-06] MEDS ORDERED: OXYCODONE HCL 10 MG TABCR (OXYCONTIN) ONE (05:51)
[2020-04-06] MEDS ORDERED: TRANEXAMIC ACID / 0.7% NACL 1000MG/100ML BAG IV ONE (05:51)
[2020-04-06] MEDS ORDERED: CLINDAMYCIN 600 MG/54 ML D5W IV ONE (05:52)
[2020-04-06] MEDS: ACETAMINOPHEN 500 MG TAB ONE ×3 (05:57→11:24)
[2020-04-06] MEDS ORDERED: LR 500ML BOLUS, THEN 15ML/HR IV SCH (06:00)
[2020-04-06 06:01] LABS: BUN Creatinine Ratio 15.5 (10-20); Calcium 8.8 mg/dl (8.5-10.1); Est GFR (Non-African American) 84.6
[2020-04-06] MEDS ORDERED: BUPIVACAINE 0.5 % 5 MG/1 ML PF 10ML VIAL ONE (06:29)
[2020-04-06] MEDS ORDERED: ROPIVACAINE 0.5% 5 MG/ML 30 ML VIAL ONE (06:29)
[2020-04-06] MEDS ORDERED: ORTHO JOINT ANESTHETIC ONE (06:35)
[2020-04-06] MEDS ORDERED: BACITRACIN INJ 50,000 UNIT VIAL ONE (06:36)
[2020-04-06] MEDS ORDERED: MIDAZOLAM HCL 1 MG/ML 2ML VIAL ONE ×2 (06:36→07:32)
[2020-04-06] MEDS ORDERED: fentaNYL citrate 100 MCG/2 ML VIAL ONE (06:36)
[2020-04-06] MEDS ORDERED: ATROPINE SULFATE 0.1 MG/ML 10ML SYR IV PRN (06:47)
[2020-04-06] MEDS ORDERED: ONDANSETRON INJ 2 MG/ML 2 ML VIAL IV PRN ×2 (06:47→11:23)
[2020-04-06] MEDS ORDERED: ePHEDrine sulfate 50 MG/ML AMP IV PRN (06:47)
[2020-04-06] MEDS ORDERED: HYDROmorphone INJ 1 MG/ML SYRINGE IV PRN (06:47)
--- NOTE | 2020-04-06 07:00 | History & Physical Bridge Note ---
Date of Service April 06, 2020 History & Physical Bridge Note I have examined the patient, reviewed the History & Physical and in the interval since the performance of the History & Physical I have noted the following changes of clinical significance: no changes noted
[2020-04-06] MEDS ORDERED: KETOROLAC TROMETHAMINE 15 MG/ML VIAL IV PRN (07:05)
[2020-04-06] MEDS ORDERED: PROPOFOL IV EMULSION 10 MG/ML 20 ML VIAL IV ONE (08:20)
[2020-04-06] MEDS ORDERED: LIDOCAINE HCL 2% 2 ML VIAL/AMP(20MG/ML) INFIL ONE (08:20)
[2020-04-06] MEDS ORDERED: TRANEXAMIC ACID 1,000 MG in 0.9 % SODIUM CHLORIDE 100 ML IR SCH (09:15)
--- NOTE | 2020-04-06 09:29 | Operative Report ---
Post Operative Report Pre & Post Diagnosis Operation Date: 04/06/20 07:00 Pre-Op Diagnosis: Right Knee Osteoarthritis Post-Op Diagnosis: Right Knee Osteoarthritis I identified the patient and participated in the time-out.: Yes Procedure Operation Date: 04/06/20 07:00 Actual Procedures p Right Total Knee Arthroplasty(Right) - Aren Trejo MD Surgeon Aren Trejo MD Edge Sawyer Scooter Nunez PA-C Estimated Blood Loss 20 Findings Consistent with Post-Op Diagnosis Specimens bone and tissue Drains none Anesthesia Type Spinal MAC Complications none Disposition Accompanied Patient To Recovery: No Disposition: Recovery Room Indications The patient is a 69 year old male with significant arthritis in the right knee. He has failed conservative measures including injection, anti-inflammatories and rehab.He is [id number] in the medial compartment. He wishes to proceed with total knee replacement. Description of Procedure Risks benefits and alternatives of surgery including but not limited to infection, DVT, pain, stiffness, need for surgery, damage to blood vessels, damage to nerves or risks of anesthesia were discussed with the patient and they wished to proceed. The patient was identified and the laterality was confirmed and marked. They received a preoperative antibiotic as well as a spinal anesthetic and an abductor canal block. A well-padded tourniquet was applied and then the limb was prepped and draped in standard manner with ChloraPrep. The limb was exsanguinated and the tourniquet was inflated. I made a standard anterior incision. I sharply incised the skin then utilized Bovie electrocautery to achieve hemostasis. I made a medial parapatellar arthrotomy and mobilized the patella laterally. I then excised the anterior horns of the medial and lateral meniscus as well as the infrapatellar fat pad. I elevated a portion of the MCL off of the tibia. I then pinned into place a patient-matched distal femoral cutting guide and made my distal femoral resection. I then pinned into place the 5 in 1 femoral cutting guide. I made my anterior, posterior and chamfer cuts. I then excised the cruciates and the remaining portions of the menisci. I then pinned into place a patient- matched tibial cutting guide and made my tibial resection. He has significant medial wear. We need to take additional 3 mm of tibia I then pinned into place the tibial plate a utilizing alignment opal to confirm rotation. I then cut for the post. Utilizing a lamina machine repairman and I then removed posterior osteophytes off the femur. I then placed a trial femur into position and cut for the trochlear component. I then sequentially trialed to size the polyethylene until there was good soft tissue balancing and range of motion. I then prepared the patella with a freehand cut utilizing sagittal saw. I sized and drilled for the patella. [There was good tracking to the patella no lateral release was needed.] All the trial components were removed. The deep tissues were anesthetized with an ortho mix solution. Then with Simplex HV with gentamicin cement, I cemented my definitive components. Definitive components, [employer]her [employer] Nephew Journey 2: Femur [7] Tibia [7] Poly [13 constrained] Patella [35] oval A betadine soak was performed. The arthrotomy was closed with interrupted #1 Vicryl suture subcutaneous tissue was closed with interrupted 2-0 Vicryl suture. The skin was closed with with [leslie]. [An Acticoat and Clementina dressing were placed.] Sterile dressings were applied. All needle and sponge counts were correct at the end of the procedure patient was transferred to the PACU in stable condition without apparent complication. The PA-C was necessary for assistance with procedure for assistance in positioning, prepping, draping, retraction and closure. I attest to the content of the Intraoperative Record and any orders documented therein. Any exceptions are noted below.
--- NOTE | 2020-04-06 10:17 | XRay Report ---
RIGHT KNEE 2 VIEWS History: Right total knee arthroplasty. Degenerative arthritis. Postop. FINDINGS: The patient is status post a right total knee arthroplasty. The hardware is intact. No frac ture or dislocation. Skin leslie are in place. IMPRESSION: Right total knee arthroplasty. No evidence for hardware complication. ACT 112: Negative or not required by law. Electronically signed by: Randy Powell M.D. 04/06/2020 10:16 AM
[2020-04-06] MEDS ORDERED: LANCETS SCH (11:23)
[2020-04-06] MEDS ORDERED: METOCLOPRAMIDE HCL INJ 5 MG/ML 2 ML VIAL IV PRN (11:23)
[2020-04-06] MEDS ORDERED: MAGNESIUM HYDROXIDE SUSP 30 ML UDC PO PRN (11:23)
[2020-04-06] MEDS ORDERED: bisacodyL 10 MG SUPP PR PRN (11:23)
[2020-04-06] MEDS ORDERED: NALOXONE HCL 0.4 MG/1 ML VIAL/CARP IV PRN (11:23)
[2020-04-06] MEDS ORDERED: CEFAZOLIN 2000MG 2,000 MG/15 ML SYR IV SCH (11:23)
[2020-04-06] MEDS ORDERED: HYDROmorphone INJ 0.5 MG/0.5 ML SYR IV PRN (11:23)
[2020-04-06] MEDS ORDERED: BLOOD SUGAR DIAGNOSTIC PRN (11:23)
--- NOTE | 2020-04-06 11:40 | Hospitalist Consultation ---
Date of Consultation April 06, 2020 Assessment & Plan (1) Status post total right knee replacement: - Pain management, bowel regimen and DVT ppx per the primary team - PT/OT consults, pt is planning on outpatient therapy with home health services - Follow am CBC to monitor for acute blood loss (2) Primary osteoarthritis of right knee: (3) Bladder cancer: - Hx of such in 2010 s/p TURP procedure (4) HTN (hypertension): - Continue amlodipine 10 mg HS, lisinopril/hctz 20/12.5 mg QAM, clonidine 0.1 mg HS - BP slightly elevated with SBP > 140 after surgery, provide pain control (5) Diabetes mellitus: - Last A1C= 5.7 on 04/03/2020, well controlled - Pharmacy glycemic management already consulted per primary team for insulin management (6) DVT prophylaxis: - teds, asa 81 mg BID CODE: FULL Dispo: From home, dc per primary team likely within 1-2 days. Thank you for involving us in the care of Mr. Viera. Please do not hesitate to call with questions or concerns. At this time medicine service will follow along. Supervising Physician Co-Signing Physician Notes PA Supervision Note: I personally saw and examined the patient. I verified all woodruff points and agree with IRENA Honeycutt with the following exceptions and/or additions: Pt feeling well, denies CP or SOB, no nausea or vomiting. Tolerated lunch. Denies pain and can now move and feel both legs after spinal anesthesia has worn off. History and ROS reviewed Vitals reviewed Obese, NAD, AAOx3 Anicteric sclerae RRR +2/6 SALLY at [facility] CTAB no wcr Abd +BS soft, NT, ND, obese Ext RLE with ANTOINE wrap in place, can move/dorsiflex and plantarflex bilat ankles and move toes bilat 69 yo male here with HTN, DMII, here for Right TKA. 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 Trejo on 04/06/2020. Patient states that he is doing well, came up from his surgical procedure about 1 hour ago. He is still numb from the hip down on his right side and is unable to feel any sensation or move his toes. He also reports numbness in the left lower extremity below the knee, and is unable to feel light sensation in the left foot/toes. He denies any other acute complaints. He has had something to drink without any nausea/vomiting, is anticipating lunch to be brought to the room soon. He anticipates doing PT with home health upon discharge, has family who lives with him in the home who are able to help him. He reports his blood pressure has been well managed as an outpatient as well as his glucose. Allergies Allergy/AdvReac Type Severity Reaction Status Date / Time amoxicillin Allergy Intermediate MOUTH SORES Verified 04/06/20 05:34 Home Medications Home Medications Medication Instructions Recorded Confirmed Type cholecalciferol (vitamin D3) 5,000 unit PO BID 12/03/18 04/06/20 History [Vitamin D3] clonidine HCl 0.1 mg PO HS 12/03/18 04/06/20 History loratadine [Claritin] 10 mg PO QAM 12/03/18 04/06/20 History omega 2-lln-zhe-fish oil [Fish Oil] 1 cap PO HS 12/03/18 04/06/20 History ascorbate calcium-bioflavonoid 1 tab PO QPM 01/14/19 04/06/20 History [Monique-C with Bioflavonoids] potassium chloride 10 mEq 10 meq PO DAILY #90 tab 04/12/19 04/06/20 Rx tablet,extended release timolol maleate 0.25 % eye drops 1 drp OP UD ml 07/20/19 04/06/20 History lancets 33 gauge #100 ea 08/02/19 04/06/20 Rx blood sugar diagnostic See Rx Instructions .ROUTE 09/09/19 04/06/20 Rx .COMPLEX PRN #100 strip amlodipine 10 mg PO HS 11/30/19 04/06/20 History glucos sul 0JMq-[id number]-[id number]-C-Mn 1 cap PO PM 11/30/19 04/06/20 History [Glucosamine Chondroitin] lisinopril-hydrochlorothiazide 1 tab PO QAM 11/30/19 04/06/20 History multivitamin 1 tab PO QPM 11/30/19 04/06/20 History dulaglutide 0.75 mg/0.5 mL See Rx Instructions .ROUTE 12/17/19 04/06/20 Rx subcutaneous pen injector .COMPLEX #4 milliliter dutasteride-tamsulosin 1 cap PO QAM 03/31/20 04/06/20 History Patient History Family History Mother Family history of diabetes mellitus Colorectal cancer Hypertension Gastric adenocarcinoma Denies family history of Ovarian cancer Prostate cancer Myocardial infarction Breast cancer Social History Preferred Language: Ukrainian Communication Ability: Effective 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 Beliefs That Will Affect Care: None Current Living Situation: Significant Other Other Information That Helps Us Care for You: No Feels Safe at Home: Yes Safety Concerns: Feels Safe At This Time Smoking Status: Former smoker Tobacco Type: cigarettes ; Do You Dip or Chew Tobacco: No ; Smoking End Date: QUIT 20 YRS AGO ; Second Hand Exposure: Yes ( A CHILD) ; Tobacco Cessation Education Requested by Patient: No Hx Alcohol Use: Yes Alcohol type: beer Hx Substance Use: No Seatbelt Use: always Review of Systems Review of Systems: Constitutional: No fever, sweats or chills Eyes: No diplopia, no worsening or blurred vision ENT: normal hearing, no trouble swallowing Respiratory: No cough, sputum, dyspnea at rest or on exertion Cardiovascular: No chest pain, tightness or palpitations Abdomen: No pain, nausea, vomiting, diarrhea or constipation, Last BM on 04/05/20. Musculoskeletal: No joint pain, calf pain, swelling Neurologic: As per HPI, + numbness/tingling, no balance problems Psychiatric: No anxiety or depression Skin: No rash or itch Physical Exam Physical Exam: General: awake, alert, no apparent distress Head: Normocephalic, atraumatic ENT: PERRL, EOMI, no pharyngeal exudate, mucous membranes moist Chest: Clear to auscultation, on room air, no adventitious breath sounds Cardiac: Regular rate and rhythm, no murmur, no JVD, normal peripheral pulses, good capillary refill Abdominal: NABS x 4 quadrants, nondistended, + obese, soft, nontender to palpation, no rebound, guarding or tenderness Extremities: Normal inspection, + RLE wrapped in ANTOINE, dressing c/d/i over knee, drain in place, icepack on, otherwise no peripheral edema or erythema, calfs nontender to palpation Psych: Normal mood and affect Neuro: AAO x 3, no gross motor deficits, speech is clear, + RLE peripheral sensory deficits to light touch, unable to move ankle or toes, and + LLE below the knee decreased sensation to light touch. Results & Data Results & Data ([facility]) Vital Signs (Past 12 Hours) Vital Signs Temp Pulse Pulse Resp BP Pulse Ox 04/06/20 11:31 36.4 C L 57 L 18 144/84 H 96 04/06/20 10:50 36.3 C L 54 L 17 143/79 H 95 04/06/20 10:40 54 L 17 137/79 94 04/06/20 10:30 52 L 15 130/75 94 04/06/20 10:20 52 L 16 142/80 H 94 04/06/20 10:10 55 L 18 140/81 98 04/06/20 10:00 57 L 16 127/76 97 04/06/20 09:50 36.2 C L 64 19 125/77 97 04/06/20 06:23 36.6 C 64 20 160/96 H 96 PG Care Time/CCT Total # of Minutes Spent Total Time Spent with Patient: Total time spent is greater than 50% in coordination of care (as documented) at patient's floor/unit and/or counseling patient: Coding Level of Care Code 76842 Inpt Consult Level 3 Diagnoses Status post total right knee replacement Z96.651 Primary osteoarthritis of right knee M17.11 Bladder cancer C67.9 HTN (hypertension) I10 Diabetes mellitus E11.9 DVT prophylaxis Z29.9
[2020-04-06] MEDS ORDERED: CARBOHYDRATES FOR HYPOGLYCEMIA PO PRN (11:45)
[2020-04-06] MEDS ORDERED: GLUCOSE 10 TABS/TUBE PO PRN (11:45)
[2020-04-06] MEDS ORDERED: GLUCOSE 40% GEL 15 GM TUBE PO PRN (11:45)
[2020-04-06] MEDS ORDERED: GLUCAGON FOR INJ 1 MG VIAL IM PRN (11:45)
[2020-04-06] MEDS ORDERED: DEXTROSE 50% 50 ML SYRINGE IV PRN (11:45)
--- NOTE | 2020-04-06 11:48 | Pharmacy Report ---
Glycemic Control Consultation - Date of Service April 06, 2020 - Scope Scope: Glycemic Pharmacist consulted for glycemic control and to write orders per [facility] inpatient glycemic control protocol. - Objective Weight: 104.78 kg Accuchecks BSG (last 24hrs): 04/06/20 04/06/20 04/06/20 05:26 05:32 09:53 Glucose 120 H POC Glucose 124 H 128 H Laboratory Data (last 24hrs): 04/06/20 05:26 Potassium 4.0 Carbon Dioxide 28 Anion Gap 3.0 Creatinine 0.92 Est Cr Clr Drug Dosing 86.0 - Recent Pertinent Medications Outpatient Anti-diabetic Regimen: * Trulicity SQ (last dose per 03/31/20) * A1c = 5.7 % 04/03/20 Risk Factors for Insulin Resistance: * Steroids:dexamethasone 8 mg PO x 1 prior to surgery * Recent Surgery: POD 1 for TKA * Diet: T2DM - Assessment & Plan Assessment & Plan: ASSESSMENT: * Mr Viera is a 69 y/o M with well controlled T2DM on injectable GLP-1 agonist who presents with R TKA. Fasting BSG well controlled at 124 mg/dL. * Due to PO steroids, will give 1 time NPH dose of 20 units. Expect patient to not require additional basal insulin. * Start weight-based stress of 2-3 Novolog for steroid hyperglycemia. * ADA & AACE recommend a goal blood sugar range 140-180 mg/dl for the majority of critically ill & non-critically ill patients. However, more stringent targets may be selected in individual cases. Will utilize more stringent goal of 110-140mg/dl based on patient age & comorbidities. Additionally, tighter glycemic control is warranted to facilitate wound/infection healing. PLAN FOR INPATIENT GLYCEMIC CONTROL: * Basal insulin * NPH 20 units SQ x1 * Bolus insulin * NovoLog per scale ACHS or Q6hrs while NPO * Goal Range: Low 110 mg/dL - High 140 mg/dL * Correction Factor: 18 mg/dL/unit * Nutritional / Prandial insulin per carb ratio of 1 unit per 6 grams CHO consumed Recommendations for Discharge * HbA1C well controlled recommend continue current home regimen. Thank you.
[2020-04-06] MEDS ORDERED: PHARMACY GLYCEMIC MGMT CONSULT PRN (11:49)
--- NOTE | 2020-04-06 11:51 | Anesthesiology Progress Note ---
Date of Service April 06, 2020 Anesthesia Post Procedure Vital Signs Vital Signs: Temp Pulse Pulse Resp BP Pulse Ox 04/06/20 11:31 36.4 C L 57 L 18 144/84 H 96 04/06/20 10:50 36.3 C L 54 L 17 143/79 H 95 04/06/20 10:40 54 L 17 137/79 94 04/06/20 10:30 52 L 15 130/75 94 04/06/20 10:20 52 L 16 142/80 H 94 04/06/20 10:10 55 L 18 140/81 98 04/06/20 10:00 57 L 16 127/76 97 04/06/20 09:50 36.2 C L 64 19 125/77 97 04/06/20 06:23 36.6 C 64 20 160/96 H 96 Transfer of Care Handoff Completed per policy Notes Mental Status: alert / awake / arousable Patient Amnestic to Procedure: Yes Nausea / Vomiting: adequately controlled Pain: adequately controlled Airway Patency, RR, SpO2: stable & adequate BP & HR: stable & adequate Hydration State: stable & adequate Neuraxial Anesthesia: was administered and sensory block is resolving Anesthetic Complications: no major complications apparent
[2020-04-06] MEDS ORDERED: NovoLIN-N (NPH) PER UNIT CHARGE SQ ONE (12:00)
[2020-04-06] MEDS: SODIUM CHLORIDE 0.9% 1000ML 1,000 ML IV SCH ×2 (12:13→21:45)
[2020-04-06] MEDS: ACETAMINOPHEN 500 MG TAB PO SCH ×2 (13:02→21:06)
[2020-04-06] MEDS: INSULIN ASPART 100 UNITS/ML 3 ML PEN SC SCH ×3 (13:34→22:17)
[2020-04-06] MEDS ORDERED: VANCOMYCIN CONSULT ACTIVE PRN (13:44)
[2020-04-06] MEDS ORDERED: VANCOMYCIN HCL 1,500 MG in SODIUM CHLORIDE 0.9% 250 ML IV SCH (15:00)
[2020-04-06] MEDS ORDERED: VANCOMYCIN HCL 1,500 MG in SODIUM CHLORIDE 0.9% 500 ML IV SCH (15:15)
[2020-04-06] MEDS: OXYCODONE HCL IR 5 MG TAB (IMMEDIATE RELEASE) PO PRN ×2 (16:27→21:52)
[2020-04-06] MEDS ORDERED: cloNIDine HCL 0.1 MG TAB PO SCH (21:00)
[2020-04-06] MEDS ORDERED: NON-FORMULARY MEDICATION (Ascorbate Calcium-Bioflavonoid [Ester-C With Bioflavonoids] 1 TA PO SCH (21:00)
[2020-04-06] MEDS ORDERED: OMEGA-3 (PURIFIED FISH OIL) 1 GM CAP PO SCH (21:00)
[2020-04-06] MEDS ORDERED: NON-FORMULARY MEDICATION (Glucos Sul 2kcl-Msm-Chond-C-Mn [Glucosamine Chondroitin] 1 CAP) PO SCH (21:00)
[2020-04-06] MEDS ORDERED: MULTIVITAMIN TAB PO SCH (21:00)
[2020-04-06] MEDS ORDERED: SENNA 8.6 MG TAB PO SCH (21:00)
[2020-04-06] MEDS ORDERED: AMLODIPINE BESYLATE 5 MG TAB PO SCH (21:00)
[2020-04-06] MEDS: CHOLECALCIFEROL 1,000 UNITS 25 MCG TAB PO SCH (21:04)
[2020-04-06] MEDS: DOCUSATE SODIUM 100 MG CAP PO SCH (21:05)
[2020-04-06] MEDS: CeleBREX 200 MG CAP PO SCH (21:06)
[2020-04-06] MEDS: ASPIRIN 81 MG ECTAB PO SCH (21:07)
[2020-04-07] MEDS: ACETAMINOPHEN 500 MG TAB PO SCH (05:47)
[2020-04-07 05:52] LABS: Hematocrit (blood only) 40.6 % (42-52); Hemoglobin 13.8 g/dL (14.0-18.0); Mean Corpuscular Hemoglobin 30.5 pg (25-34); Mean Corpuscular Volume 89.6 fL (80-100); Platelet Count 173 K/uL (130-400); RDW Coefficient of Variation 13.7 % (11.5-14.5); RDW Standard Deviation 45.3 fL (36.4-46.3); Red Blood Count 4.53 M/uL (4.7-6.1); White Blood Count 16.13 K/uL (4.8-10.8)
[2020-04-07 06:29] LABS: BUN Creatinine Ratio 21.7 (10-20); Calcium 8.4 mg/dl (8.5-10.1); Creatinine Clr Calc Pharmacy 98.8 ml/min; Est GFR (African American) 105.6; Est GFR (Non-African American) 91.1; Potassium 3.8 mmol/L (3.5-5.1)
--- NOTE | 2020-04-07 07:40 | Orthopedic Progress Note ---
Date of Service April 07, 2020 Assessment & Plan (1) Status post total right knee replacement: POD#1 Right TKA -PT/OT -Pain management -DVT prophylaxis-ASA 18mg BID x 1 mo, SCDs, TEDs -AM labs-Hemoglobin at 13.8 down from 17 preop. -D/C planning-home with HHPT later today as long as PT goes well. Admission and Anticipated Discharge Date Admission Date: April 06, 2020 Subjective Patient seen sitting in bedside chair. He is doing well, not having much pain. He is doing well. No complaints. Denies chest pain, sob, light headedness, n/v/d. Review of Systems Review of Systems: All systems reviewed & are unremarkable except as noted in HPI & below Physical Exam Physical Exam: Right knee dressing is c/d/i, DIRK in place. Toes mobile and has good dorsiflexion. No calf tenderness. Distally n/v status and sensation intact. Constitutional: well developed and well nourished; no acute distress Results & Data ([facility]) Vital Signs (Past 12 Hours) Vital Signs Temp Pulse Pulse Resp BP Pulse Ox 04/07/20 07:03 36.4 C L 58 L 16 156/89 H 97 04/07/20 03:10 36.5 C 62 20 144/80 H 96 04/06/20 23:19 36.5 C 62 19 145/72 H 97 04/06/20 20:17 36.7 C 58 L 18 149/72 H 97 Laboratory Results H & H 04/07/20 Range/Units 05:05 Hgb 13.8 L (14.0-18.0) g/dL Hct 40.6 L (42-52) %
[2020-04-07] MEDS: DOCUSATE SODIUM 100 MG CAP PO SCH (08:48)
[2020-04-07] MEDS: CeleBREX 200 MG CAP PO SCH (08:48)
[2020-04-07] MEDS: ASPIRIN 81 MG ECTAB PO SCH (08:49)
[2020-04-07] MEDS: CHOLECALCIFEROL 1,000 UNITS 25 MCG TAB PO SCH (08:50)
[2020-04-07] MEDS: INSULIN ASPART 100 UNITS/ML 3 ML PEN SC SCH ×2 (08:53→12:28)
[2020-04-07] MEDS ORDERED: TIMOLOL MALEATE 0.25% OP SOLN 5 ML BTL OPL SCH (09:00)
[2020-04-07] MEDS ORDERED: TAMSULOSIN HCL 0.4 MG CAP PO SCH (09:00)
[2020-04-07] MEDS ORDERED: LORATADINE 10 MG TAB PO SCH (09:00)
[2020-04-07] MEDS ORDERED: MULTIVITAMIN TAB PO SCH (09:00)
[2020-04-07] MEDS ORDERED: LISINOPRIL/HCTZ 20/12.5MG 1 TAB TAB PO SCH (09:00)
[2020-04-07] MEDS ORDERED: POTASSIUM CHLORIDE 10 MEQ TABCR PO SCH (12:00)
[2020-04-07] MEDS: OXYCODONE HCL IR 5 MG TAB (IMMEDIATE RELEASE) PO PRN (12:17)
--- NOTE | 2020-04-08 19:33 | Discharge Summary ---
Date of Service April 08, 2020 Admission HPI Per Admitting Provider Patient is a 69 year old male with PMHx significant for HTN, DM2, BPH, bladder ca with long standing history of right knee pain. He has failed conservative therapy including cortisone injections, visco injections, and ant iinflammatories. His pain is affecting his ability to carry out normal daily activities. He would like to proceed with right knee replacement. He had been previously scheduled for surgery last year but was cancelled due to an elevated A1c. This has come down and is now less than 7.5 and he would like to proceed with surgery. Patient denies headaches, sweats, fevers, chills, double vision, blurred vision, cough, sore throat, dysphagia, chest pain, sob, wheezing, n/v/d/c, numbness, tingling, fatigue, urinary symptoms, mood disorders. ROS positive for right knee pain and stiffness. Admission Exam Per Admitting Provider Constitutional: well developed and well nourished; no acute distress Eyes: PERRL, conjunctivae normal, anicteric sclerae ENMT: external ear and nose normal, oropharynx normal Neck: trachea midline, no thyromegaly Respiratory: normal respiratory effort, lungs clear to auscultation Cardiovascular: RRR, no murmur, no edema Musculoskeletal: Right knee: ROM 0-120, tenderness medial joint line. Stable to valgus and varus stress tests. Positive Eli's. Skin: no rashes, warm and dry Neurologic: patellar DTR's 2+ bilat, sensation intact Psychiatric: A+Ox3, euthymic affect Principal Diagnosis Right knee osteoarthritis, DM2 Discharge Exam Constitutional well developed and well nourished; no acute distress Eyes PERRL, conjunctivae normal, anicteric sclerae ENMT external ear and nose normal, oropharynx normal Neck trachea midline, no thyromegaly Respiratory normal respiratory effort, lungs clear to auscultation Cardiovascular RRR, no murmur, no edema Skin no rashes, warm and dry Neurologic patellar DTR's 2+ bilat, sensation intact Psychiatric A+Ox3, euthymic affect Discharge Data Allergies Allergy/AdvReac Type Severity Reaction Status Date / Time amoxicillin Allergy Intermediate MOUTH SORES Verified 04/06/20 05:34 Consultations 04/06/20 11:23 Consult Case Management - Discharge Planning Routine Consult Hospitalist Routine Procedures Performed Operation Date: 04/06/20 07:00 Actual Procedures p Right Total Knee Arthroplasty(Right) - Aren Trejo MD Ordered Studies 04/06/20 05:00 US - OR guided needle placemen Routine Hospital Course (1) Status post total right knee replacement: Patient presented for same day admission following right total knee arthroplasty on 04/06/20. He tolerated procedure well. The Patient had an uneventful hospital course. Post-operatively, his activity was progressed and well tolerated. They participated in PT with ambulation distance of 450, 40, and 170 feet. ROM of operative knee reached 92 degrees. Labs remained stable- lowest hemoglobin recorded: 13.8. Dr. Crane of medical service was consulted for medical management during admission. Pain controlled on oral medications. Please refer to daily progress notes and PT notes for complete details. After exam on 04/07/20, patient was felt to be stable for discharge home with plans for home health PT. Patient will f/u in the office in about 2 weeks for further evaluation including x-rays and incision check, sooner if having any issues or concerns. Lab Results 04/06/20 04/06/20 04/06/20 Range/Units 05:26 05:26 05:32 WBC (4.8-10.8) K/uL RBC (4.7-6.1) M/uL Hgb (14.0-18.0) g/dL Hct (42-52) % MCV (80-100) fL MCH (25-34) pg MCHC (32-36) g/dL RDW Std Deviation (36.4-46.3) fL RDW Coeff of Johnson (11.5-14.5) % Plt Count (130-400) K/uL MPV (7.4-10.4) fL Sodium 140 (136-145) mmol/L Potassium 4.0 (3.5-5.1) mmol/L Chloride 109 H (98-107) mmol/L Carbon Dioxide 28 (21-32) mmol/L Anion Gap 3.0 (3-11) BUN 14 (7-18) mg/dl Creatinine 0.92 (0.6-1.4) mg/dl Est Cr Clr Drug Dosing 86.0 ml/min Est GFR ( Amer) 98.0 Est GFR (Non-Af Amer) 84.6 BUN/Creatinine Ratio 15.5 (10-20) Glucose 120 H (70-99) mg/dl POC Glucose 124 H (70-99) mg/dl Calcium 8.8 (8.5-10.1) mg/dl Blood Type O Negative Antibody Screen NEGATIVE 04/06/20 04/06/20 04/06/20 Range/Units 09:53 12:11 17:09 WBC (4.8-10.8) K/uL RBC (4.7-6.1) M/uL Hgb (14.0-18.0) g/dL Hct (42-52) % MCV (80-100) fL MCH (25-34) pg MCHC (32-36) g/dL RDW Std Deviation (36.4-46.3) fL RDW Coeff of Johnson (11.5-14.5) % Plt Count (130-400) K/uL MPV (7.4-10.4) fL Sodium (136-145) mmol/L Potassium (3.5-5.1) mmol/L Chloride (98-107) mmol/L Carbon Dioxide (21-32) mmol/L Anion Gap (3-11) BUN (7-18) mg/dl Creatinine (0.6-1.4) mg/dl Est Cr Clr Drug Dosing ml/min Est GFR ( Amer) Est GFR (Non-Af Amer) BUN/Creatinine Ratio (10-20) Glucose (70-99) mg/dl POC Glucose 128 H 160 H 116 H (70-99) mg/dl Calcium (8.5-10.1) mg/dl Blood Type Antibody Screen 04/06/20 04/07/20 04/07/20 Range/Units 20:27 05:05 05:05 WBC 16.13 H (4.8-10.8) K/uL RBC 4.53 L (4.7-6.1) M/uL Hgb 13.8 L (14.0-18.0) g/dL Hct 40.6 L (42-52) % MCV 89.6 (80-100) fL MCH 30.5 (25-34) pg MCHC 34.0 (32-36) g/dL RDW Std Deviation 45.3 (36.4-46.3) fL RDW Coeff of Johnson 13.7 (11.5-14.5) % Plt Count 173 (130-400) K/uL MPV 11.0 H (7.4-10.4) fL Sodium 138 (136-145) mmol/L Potassium 3.8 (3.5-5.1) mmol/L Chloride 107 (98-107) mmol/L Carbon Dioxide 25 (21-32) mmol/L Anion Gap 6.0 (3-11) BUN 17 (7-18) mg/dl Creatinine 0.80 (0.6-1.4) mg/dl Est Cr Clr Drug Dosing 98.8 ml/min Est GFR ( Amer) 105.6 Est GFR (Non-Af Amer) 91.1 BUN/Creatinine Ratio 21.7 H (10-20) Glucose 119 H (70-99) mg/dl POC Glucose 135 H (70-99) mg/dl Calcium 8.4 L (8.5-10.1) mg/dl Blood Type Antibody Screen 04/07/20 04/07/20 Range/Units 08:22 12:19 WBC (4.8-10.8) K/uL RBC (4.7-6.1) M/uL Hgb (14.0-18.0) g/dL Hct (42-52) % MCV (80-100) fL MCH (25-34) pg MCHC (32-36) g/dL RDW Std Deviation (36.4-46.3) fL RDW Coeff of Johnson (11.5-14.5) % Plt Count (130-400) K/uL MPV (7.4-10.4) fL Sodium (136-145) mmol/L Potassium (3.5-5.1) mmol/L Chloride (98-107) mmol/L Carbon Dioxide (21-32) mmol/L Anion Gap (3-11) BUN (7-18) mg/dl Creatinine (0.6-1.4) mg/dl Est Cr Clr Drug Dosing ml/min Est GFR ( Amer) Est GFR (Non-Af Amer) BUN/Creatinine Ratio (10-20) Glucose (70-99) mg/dl POC Glucose 115 H 92 (70-99) mg/dl Calcium (8.5-10.1) mg/dl Blood Type Antibody Screen Total Time Total Time Spent Total Time Spent (In Minutes): 20 Discharge Plan Discharge Items Patient Disposition: Home - Home Health Services Reason For Visit: Right Knee Osteoarthritis Discharge Diagnosis: Right knee osteoarthritis Activity: Per Instructions section Non-emergency contact: Surgeon Call non-emergency contact if: you have any medication questions, your pain is not controlled, your pain is worsening, your pain is concerning for you, you have a fever, your temperature is above 101, your wound has increased redness, your wound has increased drainage and your wound pain has increased Follow-up/Referrals: Yue Emerson CRNP [Primary Care Provider] - Diet: Regular Addtl Attending Provider Instructions: ACTIVITY RECOMMENDATIONS: SELF CARE INSTRUCTIONS AFTER TOTAL KNEE REPLACEMENT A. You may need to continue a physical therapy program after discharge from the hospital. There are several options available to you. Your doctor will assist you in selecting the best one for you. 1. An out-patient facility 2 to 3 times a week for therapy or home therapy. 2. Continue working on all exercises taught to you in the hospital. Your goals should be to increase bending of your knee to 90 degrees and beyond and to fully straighten your knee. B. You may progress at your own pace from walking with a walker or crutches to a cane; then to no assistive devices. C. Make walking a part of your daily routine. Be up as much as comfortable with rest periods throughout the day. Rest with leg elevation is very important. Use the ice wrap frequently for the first 3-4 weeks. D. There are no restrictions on activities. 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 E. Wear the long elastic stockings (LANCE hose) 20 hours a day for 2 weeks after surgery. They can be removed several times a day for laundering and for a bath. F. You may shower, no tub baths until cleared by your doctor. SPECIAL CARE INSTRUCTIONS: VERY IMPORTANT TO READ AND REVIEW A. There are a few signs you need to watch for after you are home. Call [facility] if you notice any of the followin. Increased severe knee pain. Some pain is expected especially when you exercise. 2. Increased swelling in your leg or knee; pain or swelling of the calf muscle in either lower leg. 3. Any fluid drainage from the incision. 4. Shortness of breath or chest pain. B. Please call [facility] at if you have any concerns or questions about your operation or recovery. The doctor or his nurse will return your call promptly. C. You must take antibiotics before dental work, bladder, bowel or other surgery. Your doctor will provide you with a permanent care to carry describing this precaution. IMPORTANT: * REMEMBER TO TAKE ASPIRIN, 81 MG, TWICE DAILY FOR 4 WEEKS UNLESS OTHERWISE DIRECTED. THIS IS YOUR BLOOD THINNER. * HIGH RISK PATIENTS MAY BE PRESCRIBED A STRONGER BLOOD THINNER. THIS WILL BE PROVIDED AT DISCHARGE. * CALL IF INCREASED PAIN, REDNESS, DRAINAGE OR FEVER GREATER THAT 101. * WEAR LANCE HOSE 20 HOURS PER DAY FOR 2 WEEKS. This is a large suction dressing covering your incision. This will help pull any excess drainage from the wound and allow your incision to heal properly. You may shower with this if you can keep the unit outside of the shower. If any bleeding or leakage is noted please call your doctor's office. This will remain on your incision for 7 days and then should be removed. This can be done yourself or by the home nursing staff if applicable. The entire unit is disposable once removed. Once removed, keep incision clean and dry. If redness or drainage is noted, please call your surgeon. FOLLOW UP VISIT: If appointment is not already scheduled: Please call [facility] to make a follow-up appointment for 2 weeks after your surgery at . Stand-Alone Forms: [employer] [place], Opioid Pain Management, Smoking Cessation Medications and DC Order Prescriptions: New celecoxib [Celebrex] 200 mg Capsule 200 mg PO BID Qty: 60 RF: 0 aspirin 81 mg Tablet,Delayed Release (Dr/Ec) 81 mg PO BID Qty: 60 RF: 0 acetaminophen 500 mg Tablet 1,000 mg PO Q8 Qty: 60 RF: 0 oxycodone 5 mg Tablet 5 - 10 mg PO .Q4H-6H MDD 6 PRN (Reason: pain) Qty: 30 RF: 0 Continued clonidine HCl 0.1 mg Tablet 0.1 mg PO HS RF: 0 loratadine [Claritin] 10 mg Tablet 10 mg PO QAM RF: 0 cholecalciferol (vitamin D3) [Vitamin D3] 5,000 unit Tablet 5,000 unit PO BID RF: 0 omega 8-roq-caf-fish oil [Fish Oil] 1,000 mg (120 mg-180 mg) Capsule 1 cap PO HS RF: 0 potassium chloride 10 mEq tablet extended release 10 meq PO DAILY Qty: 90 RF: 3 (DME) lancets [OneTouch Delica Lancets] 33 gauge misc See Dose Instructions .ROUTE .MEDSUPPLY Qty: 100 RF: 2 OneTouch Ultra Blue Test Strip strip See Rx Instructions .ROUTE .COMPLEX PRN (Reason: E11.9) Qty: 100 RF: 3 dulaglutide [Trulicity] 0.75 mg/0.5 mL pen injector See Rx Instructions .ROUTE .COMPLEX Qty: 4 RF: 5 timolol maleate 0.25 % drops 1 drp OP UD RF: 0 Monique-C with Bioflavonoids 1,000-200 mg Tablet 1 tab PO QPM RF: 0 lisinopril-hydrochlorothiazide 20-12.5 mg tablet 1 tab PO QAM RF: 0 amlodipine 10 mg tablet 10 mg PO HS RF: 0 multivitamin Tablet 1 tab PO QPM RF: 0 Glucosamine Chondroitin 550-30-1 mg Capsule 1 cap PO PM RF: 0 dutasteride-tamsulosin 0.5-0.4 mg capsule, ER multiphase 24 hr 1 cap PO QAM RF: 0 Discharge Orders: Discharge Order (Routine); Ordered 04/07/20 Ordered By: Scooter Boggs/Other Patient Handouts: DVT Post Op Prevention, Hyperglycemia, Hypoglycemia, Diabetes Type 2 Managing Admission Data Admit Date/Time: 04/06/20 10:00 Attending Provider: Aren Trejo Admit Provider: Aren Trejo Primary Care Provider: Yue Emerson Other Providers: Dat Allison Other Interventions: Discharge Summary Assessment (RN) Last Done: 04/07/20 11:10 DC Date/Time DO NOT enter until pt leaves facility: 04/07/20 13:59
== END 2020-04-07 13:59 | disposition home health service (06) | DRG 470 ==
LOC: ASU 05:08 → 3E 10:00

== ENCOUNTER 2025-07-26 09:17 | Observation (INO) ==
[2025-07-26 09:26] VITALS: TEMP 97.7
--- NOTE | 2025-07-26 09:58 | Emergency Department Note ---
Impression & Plan Orchitis and epididymitis, Cellulitis of scrotum, DORA (acute kidney injury), Pseudohyponatremia ED Provider Note NAME: SUNI MCFARLAND AGE: 74 SEX: M : 1950 ARRIVES VIA: Walk-In INFORMANT: Patient, his ED PROVIDER(S): Hitesh Simpson DO CHIEF COMPLAINT: testicular pain HPI: This is a 74-year-old male with the PMHx of hypertension, osteoarthritis, diabetes, GERD and BPH presenting to [facility] for further evaluation of testicular swelling and pain. Patient is accompanied by his who provide additional history. The patient reports that he was lifting heavy rocks approximately 1 week ago. He states that he did feel some pain within his lower abdomen as well as the scrotum. Patient states he had a illness that he attributed to food that he ate. He reported generalized abdominal swelling and pain. Patient reports fullness in his scrotum. This is worse in the right hemiscrotum. Patient states he has significant pain in this area. Patient reports that he is passing bowel movements as well as flatus. He reports significant dry heaving and vomiting last week but this has improved. Patient reports a prior inguinal hernia repair approximately 50 years ago. Patient states he is not have any issues since. They deny fever or chills. No cough or congestion. Denies chest pain or palpitations. No shortness of breath. They deny abdominal pain, nausea and vomiting. No urinary complaints. No recent changes in bowel movements. Patient denies recent changes in medications or OTC supplements. Patient offers no other complaints, today. ADDITIONAL HISTORY OBTAINED: Per HPI Chronic Medical/Social Conditions Affecting Care: Per HPI PAST MEDICAL HISTORY: See Below PAST SURGICAL HISTORY: See Below FAMILY HISTORY: See Below SOCIAL HISTORY: See Below HOME MEDICATIONS: See Below ALLERGIES: See Below VITALS: See Below PHYSICAL EXAMINATION: GENERAL: Sitting up in bed, alert, well appearing, well nourished, no distress, non-toxic EYE EXAM: normal conjunctiva. PERRL and EOM's grossly intact. OROPHARYNX: no exudate, no erythema, lips, buccal mucosa, and tongue normal and mucous membranes are moist NECK: supple, no nuchal rigidity, no adenopathy, non-tender LUNGS: Clear to auscultation. Normal chest wall mechanics HEART: no murmurs, regular rate, regular rhythm ABDOMEN: abdomen soft, non-tender, no masses, no rebound or guarding. Reducible umbilical hernia. : Significant right hemiscrotum fullness with erythematous skin and severe tenderness to palpation. Large mass present. BACK: Back is symmetrical on inspection and there is no deformity, no midline tenderness, no CVA tenderness. SKIN: no rashes and no bruising UPPER EXTREMITIES: upper extremities are grossly normal. LOWER EXTREMITIES: No pitting edema. NEURO EXAM: Normal sensorium, GCS 15, normal speech, no gross weakness of arms, no gross weakness of legs. MEDICAL DECISION MAKING: Differential diagnoses includes but not limited to testicular torsion, testicular mass, epididymitis, orchitis, Kareem's gangrene, cellulitis, incarcerated hernia, appendicitis, bowel obstruction, diverticulitis, malignancy, nephrolithiasis, gastroenteritis, ACS, PNA, pancreatitis, biliary disease, UTI In summary, this is a 74 year old male who presented with testicular swelling and pain. Differential as above. Nursing notes and pertinent past medical records reviewed. Vital signs reviewed and the patient is afebrile hemodynamically stable. History and presentation revealed he was lifting heavy objects in the past week and developed lower quadrant abdominal pain. Then proceeded to have significant vomiting and dry heaving over the next few days. Now presents with worsening swelling and pain of the right hemiscrotum. Physical examination revealed significant erythema and swelling of the right hemiscrotum. Large palpable mass. Unclear if this is bowel or enlarged testicle. Differential would include an incarcerated hernia as well as testicular torsion. Plan for CT abdomen/pelvis as well as testicular ultrasound. Will collect basic lab work and give pain medications as well as IV fluid resuscitation. Diagnostics interpreted by me include cardiac monitoring as listed below: -Cardiac Monitoring: An order was placed for continuous cardiac monitoring. The monitor shows a rate of 60-70s with regular rhythm. Patient completed laboratory studies and imaging. Results independently interpreted by me are minimal leukocytosis. No significant anemia. Lactate is normal. The patient was managed with IV fluid resuscitation as well as pain control medications. CMP revealed electrolyte derangements including hyperglycemia, pseudohyponatremia as well as an DORA. Total bilirubin is mildly elevated. LFTs are otherwise unremarkable. Lipase minimally elevated. I do suspect the patient's DORA is likely related to hydration status. The patient was given analgesia with IV morphine as well as IV fluid resuscitation. Patient was started on IV levofloxacin for coverage of epididymitis/orchitis. This antibiotic will also cover the patient's scrotal cellulitis. Patient's exam findings are concerning as well as her pain as his pain. Given this as well as DORA, I do feel the patient should be admitted to the hospital. Patient was requested. I did discuss with urology who was able to see the patient. They will follow the patient as an outpatient. They recommend obtaining a urinalysis as well as urine culture. This was ordered but the patient has had difficulty with urination. Patient reported pain that was improved on reevaluation. I have independently reviewed the patient CT abdomen/pelvis that shows a small right inguinal hernia but do not believe this is the etiology of patient's symptoms. Ultrasound was consistent with epididymitis/orchitis. Patient does have Doppler flow to both testes. No evidence of torsion but would consider intermittent torsion as reasoning for urology consultation. Ultimately, the decision was made to admit the patient for significant epididymitis and orchitis with scrotal edema/cellulitis and DORA. I discussed the case with the hospitalist service via telephone/Tiger[employer] and they are agreeable to admit the patient to their services. Based on the above, including the patient's age, coexisting illnesses, labs, imaging, and exam findings the decision to treat as an inpatient. I discussed the patient with the hospitalist team who recommended admission to their services. They received the medications, treatments, interventions indicated above and their condition remained stable. I discussed my findings with the patient and their family and they understand and agree with the treatment plan. All patient / family questions were answered to their satisfaction. Consults/Care Managements Discussions: Per [facility] ER treatment provided: See above Procedures: none Critical Care: None The chart was completed utilizing [employer] voice recognition software. Grammatical errors, random word insertions, pronoun errors, and incomplete sentences are an occasional consequence of this system due to software limitations, ambient noise, and hardware issues. Any formal questions or concerns about the content, text, or information contained within the body of this dictation should be directly addressed to the physician for clarification. Past Med/Surg History Problem List (Updated 07/26/25 @ 17:08 by Hitesh Simpson DO) Pseudohyponatremia (Acute) DORA (acute kidney injury) (Acute) Cellulitis of scrotum (Acute) Orchitis and epididymitis (Acute) Orchitis, right GERD (gastroesophageal reflux disease) BPH with obstruction/lower urinary tract symptoms Erectile dysfunction (Acute) Primary osteoarthritis of right knee Heart murmur, aortic HTN (hypertension) (Chronic) Diabetes mellitus (Chronic) Medical History Bladder cancer Dx'ed 2001- s/p TURBT 2000 and 2010 History of colon polyps History of Mohs micrographic surgery for skin cancer ON NOSE Hx of basal cell carcinoma Hx of bladder cancer Glaucoma "PIGMENT INDUCED GLAUCOMA" LEFT EYE Hyperlipidemia Surgical History History of total knee replacement RT Status post total right knee replacement History of arthroscopy of right knee H/O oral surgery GROWTH REMOVED (BENIGN) History of cystoscopy History of biopsy of bladder S/P Mohs surgery for basal cell carcinoma History of colonoscopy History of tonsillectomy History of cataract extraction RT/LEFT History of hernia repair INGUINAL HERNIA REPAIR (RIGHT) History of bladder surgery TURBT X 2 (MALIGNANT 2000, BENIGN 2010) Family History Mother Family history of diabetes mellitus Colorectal cancer Gastric adenocarcinoma Hypertension Other No family history of adverse response to anesthesia Denies family history of Ovarian cancer Prostate cancer Myocardial infarction Breast cancer Social History Smoking Status: Never smoker Tobacco Type: Cigarettes Age Started Using Tobacco: 16; Age Quit Using Tobacco: 35; packs per day: 1; Second Hand Exposure: No ( A CHILD); Do You Dip or Chew Tobacco: No; Hx Alcohol Use: No Hx Substance Use: No Preferred Language: Kiswahili Communication Ability: Effective Visual Impairment: No Limitations Hearing Ability: Normal Plastics Supervisor Required: No Beliefs That Will Affect Care: None marital status: Single Current Living Situation: Significant Other current occupational status: retired How many Children do You have: 2 Feels Safe at Home: Yes Childhood Exposure to Second-Hand Smoke: Yes Diet: regular caffeine: Yes (coffee) during the past year weight has: remained stable Dental Care, Regularly: Yes Physical Activity Frequency: Daily Physical Activity Frequency Comment: active Seatbelt Use: always Sunscreen Use: Yes Do you think of yourself as: straight/heterosexual Sexual Activity: has been sexually active within the last 12 months Gender Identity: Male Assistive Devices: Glasses Allergies Allergies Allergy/AdvReac Type Severity Reaction Status Date / Time bee venom protein (honey bee) Allergy Severe Anaphylaxis Unverified 07/26/25 12:18 amoxicillin Allergy Intermediate MOUTH SORES Verified 07/26/25 12:18 Home Meds Home Medications Medication Instructions Recorded Confirmed cholecalciferol (vitamin D3) 125 5,000 unit PO BID 12/03/18 07/26/25 mcg (5,000 unit) tablet (Vitamin D3) loratadine 10 mg tablet (Claritin) 10 mg PO QAM 12/03/18 07/26/25 timolol maleate 0.25 % eye drops 1 drp OPL BID 07/20/19 07/26/25 glucosamine sulf dipot 1 cap PO PM 11/30/19 07/26/25 chlr,msm,chond 550 mg-C 30 mg-eduar 1 mg capsule (Glucosamine Chondroitin) multivitamin 1 tab PO QPM 11/30/19 07/26/25 ascorbate calcium-bioflavonoid 1 tab PO QPM 01/28/23 07/26/25 1,000 mg-200 mg tablet (Monique-C with Bioflavonoids) dulaglutide 0.75 mg/0.5 mL 0.75 mg subcut WK 07/26/25 07/26/25 subcutaneous pen injector omega 4-slp-ske-fish oil 910 1 cap PO DAILY 07/26/25 07/26/25 mg-1,400 mg capsule ([place]-3 Fish Oil) Previous Rx's Medication Instructions Recorded lancets 33 gauge (OneTouch Delica #100 ea 08/22/20 Lancets) epinephrine 0.3 mg/0.3 mL 0.3 mg (0.3 mL) IM Q4H PRN 03/27/22 injection, auto-injector anaphylaxis #1 ea blood sugar diagnostic (OneTouch #100 ea 02/25/23 Ultra Test strips) blood-glucose meter (OneTouch #1 ea 02/25/23 Ultra2 Meter) azithromycin 500 mg tablet 500 mg PO DAILY PRN Dental 08/03/24 prophylaxis #2 tabs amlodipine 10 mg tablet 10 mg PO HS #90 tabs 01/18/25 spironolactone 25 mg tablet 25 mg PO DAILY #90 tabs 01/25/25 omeprazole 20 mg capsule,delayed 20 mg PO DAILY #30 caps 02/03/25 release atorvastatin 10 mg tablet 10 mg PO DAILY #90 tabs 02/21/25 lisinopril 20 1 tab PO BID #180 tabs 06/07/25 mg-hydrochlorothiazide 12.5 mg tablet dutasteride 0.5 mg capsule 0.5 mg PO DAILY #90 caps 07/19/25 tamsulosin 0.4 mg capsule 0.4 mg PO DAILY #90 caps 07/19/25 Results & Data (ED) Vital Signs Vital Signs - 24 hr 07/26/25 09:21 07/26/25 12:20 07/26/25 12:31 Temperature 36.5 C Temperature Source Skin Pulse Rate 71 63 Pulse Rate [Apical] 66 Pulse Rhythm [Apical] Pulse Strength [Apical] Respiratory Rate 17 18 Respiratory Effort / Characteristics Non-Labored Spontaneous Non-Labored Spontaneous Respiratory Depth Normal Normal Respiratory Pattern Regular Regular Blood Pressure 119/66 Blood Pressure [Right Arm] 128/66 Blood Pressure Mean 83 Blood Pressure Mean [Right Arm] 86 Pulse Oximetry 97 94 Oxygen Delivery Method Room Air Room Air Sepsis Recent Fever Within 48 Hours No Sepsis New/Unexplained Change in Mental Status N/A Sepsis Action Taken by Nursing No Action Required 07/26/25 16:00 Temperature Temperature Source Pulse Rate Pulse Rate [Apical] 65 Pulse Rhythm [Apical] Regular Pulse Strength [Apical] Normal Respiratory Rate 17 Respiratory Effort / Characteristics Non-Labored Spontaneous Respiratory Depth Normal Respiratory Pattern Blood Pressure Blood Pressure [Right Arm] 129/59 L Blood Pressure Mean Blood Pressure Mean [Right Arm] 82 Pulse Oximetry 95 Oxygen Delivery Method Room Air Sepsis Recent Fever Within 48 Hours Sepsis New/Unexplained Change in Mental Status Sepsis Action Taken by Nursing Laboratory Data 07/26/25 09:50 07/26/25 09:50 Lab Results 07/26/25 Range/Units 09:50 WBC 11.51 H (4.8-10.8) K/ul RBC 5.27 (4.70-6.10) M/uL Hgb 16.1 (14.0-18.0) g/dl Hct 47.7 (42.0-52.0) % MCV 90.5 (80.0-100.0) fL MCH 30.6 (25.0-34.0) pg MCHC 33.8 (32.0-36.0) g/dL RDW Std Deviation 44.9 (36.4-46.3) fL RDW Coeff of Johnson 13.5 (11.5-14.5) % Plt Count 190 (130-400) K/uL MPV 10.9 (9.4-12.4) fL Immature Gran % (Auto) 0.7 % Neut % (Auto) 75.7 % Lymph % (Auto) 12.9 % [place] % (Auto) 8.3 % Eos % (Auto) 1.9 % Baso % (Auto) 0.5 % Neut # (Auto) 8.71 H (1.40-6.50) K/uL Lymph # (Auto) 1.48 (1.20-3.40) K/uL [place] # (Auto) 0.96 H (0.11-0.59) K/uL Eos # (Auto) 0.22 (0.00-0.50) K/uL Baso # (Auto) 0.06 (0.00-0.20) K/uL Immature Gran # (Auto) 0.08 (0.01-0.20) K/uL Sodium 134 L (136-145) mmol/L Potassium 4.3 (3.5-5.1) mmol/L Chloride 98 (98-107) mmol/L Carbon Dioxide 27 (21-32) mmol/L Anion Gap 9 (3-11) BUN 38 H (6-23) mg/dl Creatinine 1.61 H (0.6-1.4) mg/dl Est Cr Clr Drug Dosing 50.6 ml/min eGFR 44.60 BUN/Creatinine Ratio 23.6 H (10-20) Glucose 133 H (70-99(Fasting)) mg/dl Lactate 1.4 (0.4-2.0) mmol/L Calcium 10.3 (8.6-10.3) mg/dl Total Bilirubin 1.1 H (0.2-1.0) mg/dl AST 37 (13-39) U/L ALT 51 (7-52) U/L Alkaline Phosphatase 61 (34-104) U/L Total Protein 8.1 (6.0-8.3) gm/dl Albumin 3.8 (3.4-5.0) gm/dl Globulin 4.3 H (2.5-4.0) gm/dl Albumin/Globulin Ratio 0.9 (0.9-2) Lipase 88 H (11-82) U/L Administered Medications Discontinued Medications Sodium Chloride (Nss) 1,000 mls @ 999 mls/hr IV .Q1H1M STA Stop: 07/26/25 10:35 Last Infusion: 07/26/25 11:41 Dose: Infused Documented By: Admin: 07/26/25 10:01 Dose: 999 mls/hr Documented By: MILTON Ioversol (Optiray 320 100ml) 94 ml IV ONCE ONE Stop: 07/26/25 11:13 Last Admin: 07/26/25 11:12 Dose: 94 ml Documented By: JANAK Morphine Sulfate (Morphine Sulfate 4 Mg/Ml 1 Ml Carp\\Vial) 4 mg IV NOW STA Stop: 07/26/25 09:36 Last Admin: 07/26/25 10:00 Dose: 4 mg Documented By: MILTON Imaging Data Radiologist's Impression: Scrotum Ultrasound 07/26/25 09:35 ULTRASOUND TESTES AND SCROTUM CLINICAL HISTORY: Right scrotal pain. COMPARISON STUDY: No priors TECHNIQUE: Real-time, grayscale, and color Doppler sonography of the testes and scrotum is performed. Images are reviewed in the transverse and longitudinal planes. FINDINGS: The testes are normal in size. The right testis is heterogeneous as compared to the left. The right testis measures 4.7 x 3.4 x 4.6 cm and the left testis measures 4.1 x 2.3 x 2.5 cm. No intratesticular mass is seen. The right testis is markedly hyperemic as compared to the left. Normal Doppler arterial and venous waveforms are identified in both testes. The epididymal heads are normal in appearance. The right epididymal head measures 1.8 cm in length and the left epididymal head measures 1.4 cm in length. A 1.0 cm epididymal head cyst is noted on the left. There is a moderate right-sided hydrocele. There is no significant hydrocele the left. No varicocele is identified. IMPRESSION: 1. The right testis is heterogeneous and shows significant hyperemia as compared to the left. Normal Doppler arterial waveforms are identified at the time of examination. The appearance is typical for a right-sided orchitis. This could also potentially be seen with testicular torsion/detorsion in the appropriate clinical setting. Clinical correlation will be essential. 2. The left testis is normal in appearance. 3. Moderate right-sided hydrocele.. ACT 112: Negative or not required by law. Electronically signed by: Albert Mccoy M.D. 07/26/2025 2:57 PM Abdomen/Pelvis CT 07/26/25 09:[address] WITH IV CONTRAST CT DOSE: 1485.68 mGy.cm HISTORY: eval for incarcerated inguinal hernia R TECHNIQUE: Multiaxial CT images of the abdomen and pelvis were performed following the IV administration of 90 cc of Optiray, A dose lowering technique was utilized adhering to the principles of ALARA. COMPARISON STUDY: 10/05/2007 FINDINGS: ABDOMEN: Liver, gallbladder, spleen, pancreas, and adrenal glands are unremarkable. Kidneys show no hydronephrosis or calculi bilaterally. There are a few cysts at the left kidney, largest at the upper pole measures 5 cm. There are scattered atherosclerotic calcifications. No abdominal aortic aneurysm. Pelvis: Prostate is enlarged and nodular and indents the urinary bladder base. Urinary bladder is mildly distended. There are multiple prostate calcifications. There is sigmoid diverticulosis. No acute diverticulitis. Normal appendix. No bowel inflammation or obstruction. No free fluid or free air. There is a tiny fat-containing periumbilical hernia. There are small fat-containing bilateral inguinal hernias, 3 cm on the right and 2.5 cm on the left. There is mild soft tissue stranding within the right inguinal hernia which is not present on the left suggesting mild inflammation at the right inguinal hernia. No fluid collection, hematoma, or abscess seen within the hernia. No bowel is contained within the hernia. No enlarged adenopathy seen. Osseous structures: There are mild degenerative changes of the lumbar spine and hips. IMPRESSION: 1. Possible mild inflammation at the small fat-containing right inguinal hernia. 2. No other acute findings seen. Otherwise as described. ACT 112: Negative or not required by law. The above report was generated using voice recognition software. It may contain grammatical, syntax or spelling errors. Electronically signed by: Vimal Love M.D. 07/26/2025 11:26 AM Discharge Plan Visit Data Chief Complaint: Testicular Pain Stated Complaint: TESTICLES ARE SWELLING ED Provider: Hitesh Simpson Discharge Problem: Orchitis and epididymitis, Cellulitis of scrotum, DORA (acute kidney injury), Pseudohyponatremia Patient Disposition: Admitted As Inpatient Condition: Fair Forms Stand Alone Forms: My [facility] Prescriptions Prescriptions: No Action loratadine [Claritin] 10 mg Tablet 10 mg PO QAM cholecalciferol (vitamin D3) [Vitamin D3] 5,000 unit Tablet 5,000 unit PO BID (DME) lancets [OneTouch Delica Lancets] 33 gauge misc See Dose Instructions .ROUTE .MEDSUPPLY Qty: 100 2RF Dose Instruction: As directed Rx Instructions: TESTS once daily as needed (DME) OneTouch Ultra Test Strip See Rx Instructions .Route Qty: 100 5RF Rx Instructions: test 1x a day (DME) blood-glucose meter [OneTouch Ultra2 Meter] Misc See Rx Instructions .Route Qty: 1 0RF Rx Instructions: test 1 x a day amlodipine 10 mg tablet 10 mg PO HS Qty: 90 3RF spironolactone 25 mg tablet 25 mg PO DAILY Qty: 90 3RF atorvastatin 10 mg tablet 10 mg PO DAILY Qty: 90 3RF Patient Comments: QPM lisinopril-hydrochlorothiazide 20-12.5 mg tablet 1 tab PO BID Qty: 180 3RF tamsulosin 0.4 mg capsule 0.4 mg PO DAILY Qty: 90 3RF dutasteride 0.5 mg capsule 0.5 mg PO DAILY Qty: 90 3RF timolol maleate 0.25 % drops 1 drp OPL BID epinephrine 0.3 mg/0.3 mL auto-injector 0.3 mg IM Q4H PRN (Reason: anaphylaxis) Qty: 1 5RF omeprazole 20 mg capsule,delayed release(DR/EC) 20 mg PO DAILY Qty: 30 4RF azithromycin 500 mg tablet 500 mg PO DAILY PRN (Reason: Dental prophylaxis) Qty: 2 1RF Rx Instructions: take 1 tab prior to dental work Monique-C with Bioflavonoids 1,000-200 mg tablet 1 tab PO QPM multivitamin Tablet 1 tab PO QPM Glucosamine Chondroitin 550-30-1 mg Capsule 1 cap PO PM [place]-3 Fish Oil 910-1,400 mg Capsule 1 cap PO DAILY dulaglutide 0.75 mg/0.5 mL pen injector 0.75 mg subcut WK Referrals Referrals: Yue Emerson CRNP [Primary Care Provider] -
[2025-07-26] MEDS: MoRPHine SULFATE 4 MG/ML 1 ML CARP\\VIAL IV STA (10:00)
[2025-07-26] MEDS: SODIUM CHLORIDE 0.9% 1,000 ML IV STA (10:01)
[2025-07-26 10:04] LABS: Hematocrit (blood only) 47.7 % (42.0-52.0); Hemoglobin 16.1 g/dl (14.0-18.0); Immature Granulocytes # (auto) 0.08 K/uL (0.01-0.20); Immature Granulocytes % (auto) 0.7 %; Mean Corpuscular Hemoglobin 30.6 pg (25.0-34.0); Mean Corpuscular Volume 90.5 fL (80.0-100.0); Platelet Count 190 K/uL (130-400); RDW Standard Deviation 44.9 fL (36.4-46.3); Red Blood Count 5.27 M/uL (4.70-6.10); White Blood Count 11.51 K/ul (4.8-10.8)
[2025-07-26 10:23] LABS: Alanine Aminotransferase 51.0 U/L (7-52); Albumin Globulin Ratio 0.9 (0.9-2); Albumin Level 3.8 gm/dl (3.4-5.0); Alkaline Phosphatase 61.0 U/L (34-104); Anion Gap 9.0 (3-11); Bilirubin,Total 1.1 mg/dl (0.2-1.0); Blood Urea Nitrogen 38.0 mg/dl (6-23); Calcium 10.3 mg/dl (8.6-10.3); Carbon Dioxide 27.0 mmol/L (21-32); Chloride 98.0 mmol/L (98-107); Creatinine Clr Calc Pharmacy 50.6 ml/min; Globulin 4.3 gm/dl (2.5-4.0); Glucose 133.0 mg/dl (70-99(Fasting)); Lipase 88.0 U/L (11-82); Potassium 4.3 mmol/L (3.5-5.1); Sodium 134.0 mmol/L (136-145); Total Protein 8.1 gm/dl (6.0-8.3)
[2025-07-26] MEDS: OPTIRAY 320 100ml IV ONE (11:12)
--- NOTE | 2025-07-26 11:28 | CT Scan Report ---
ABDOMEN AND PELVIS CT WITH IV CONTRAST CT DOSE: 1485.68 mGy.cm HISTORY: eval for incarcerated inguinal hernia R TECHNIQUE: Multiaxial CT images of the abdomen and pelvis were performed following the IV administrat ion of 90 cc of Optiray, A dose lowering technique was utilized adhering to the principles of ALARA. COMPARISON STUDY: 10/05/2007 FINDINGS: ABDOMEN: Liver, gallbladder, spleen, pancreas, and adrenal glands are unremarkable. Kidneys show no h ydronephrosis or calculi bilaterally. There are a few cysts at the left kidney, largest at the upper pole measures 5 cm. There are scattered atherosclerotic calcifications. No abdominal aortic aneurysm. Pelvis: Prostate is enlarged and nodular and indents the urinary bladder base. Urinary bladder is mil dly distended. There are multiple prostate calcifications. There is sigmoid diverticulosis. No acute diverticulitis. Normal appendix. No bowel inflammation or obstruction. No free fluid or free air. The re is a tiny fat-containing periumbilical hernia. There are small fat-containing bilateral inguinal hernias, 3 cm on the right and 2.5 cm on the left. There is mild soft tissue stranding within the right inguinal hernia which is not present on the left suggesting mild inflammation at the right inguinal hernia. No fluid collection, hematoma, or abscess seen within the hernia. No bowel is contained within the hernia. No enlarged adenopathy seen. Osseous structures: There are mild degenerative changes of the lumbar spine and hips. IMPRESSION: 1. Possible mild inflammation at the small fat-containing right inguinal hernia. 2. No other acute findings seen. Otherwise as described. ACT 112: Negative or not required by law. The above report was generated using voice recognition software. It may contain grammatical, syntax o r spelling errors. Electronically signed by: Vimal Love M.D. 07/26/2025 11:26 AM
--- NOTE | 2025-07-26 14:59 | Ultrasound Report ---
ULTRASOUND TESTES AND SCROTUM CLINICAL HISTORY: Right scrotal pain. COMPARISON STUDY: No priors TECHNIQUE: Real-time, grayscale, and color Doppler sonography of the testes and scrotum is performed. Images are reviewed in the transverse and longitudinal planes. FINDINGS: The testes are normal in size. The right testis is heterogeneous as compared to the left. The right t estis measures 4.7 x 3.4 x 4.6 cm and the left testis measures 4.1 x 2.3 x 2.5 cm. No intratesticular mass is seen. The right testis is markedly hyperemic as compared to the left. Normal Doppler arteria l and venous waveforms are identified in both testes. The epididymal heads are normal in appearance. The right epididymal head measures 1.8 cm in length an d the left epididymal head measures 1.4 cm in length. A 1.0 cm epididymal head cyst is noted on the l eft. There is a moderate right-sided hydrocele. There is no significant hydrocele the left. No varicocele is identified. IMPRESSION: 1. The right testis is heterogeneous and shows significant hyperemia as compared to the left. Normal Doppler arterial waveforms are identified at the time of examination. The appearance is typical for a right-sided orchitis. This could also potentially be seen with testicular torsion/detorsion in the a [facility] clinical setting. Clinical correlation will be essential. 2. The left testis is normal in appearance. 3. Moderate right-sided hydrocele.. ACT 112: Negative or not required by law. Electronically signed by: Albert Mccoy M.D. 07/26/2025 2:57 PM
--- NOTE | 2025-07-26 15:36 | Urology Consultation ---
Date of Consultation July 26, 2025 Assessment & Plan (1) Orchitis, right: 74-year-old male presented to the ED for evaluation of right testicular pain and swelling. Ultrasound of scrotum and testes suggestive of right sided orchitis. Urology is consulted for orchitis. Patient is afebrile, hemodynamically stable Labs reviewedWBC 11.51, creatinine 1.61 CT abdomen pelvis showed mild inflammation at the small fat-containing right inguinal hernia Ultrasound scrotum and testes showed right testes heterogeneous with significant hyperemia as compared to the left, consistent with right sided orchitis Exam appears consistent with right-sided orchitis Recommend obtaining urinalysis and urine culture Recommend initiate antibiotics after urine studies are obtained and tailor per sensitivities when available Recommend supportive care Patient can be discharged with empiric antibiotics presuming he remains clinically stable Patient can follow-up outpatient with urology Plan of care reviewed with my attending urologist as well as ED physician Please contact our service with any additional questions or concerns Supervising Physician Co-Signing Physician Notes Discussed patient with KIKE. Agree with plan. Treat with antibiotics and pain control. Defer findings of hernia to primary team. Patient can follow-up as an outpatient but does not require admission for this issue. Urology to sign off. History of Present Illness Reason for Consultation: Orchitis Requesting Physician: Dr. Simpson History of Present Illness This is a 74-year-old male who follows with urology for BPH and remote history of bladder cancer. He presented to the emergency department today for evaluation of testicular pain and swelling. On arrival to ED, he is afebrile, hemodynamically stable. Labs showed WBC 11.51, hemoglobin 16.1, creatinine 1.61. CT abdomen pelvis showed possible mild inflammation at the small fat-containing right inguinal hernia. Ultrasound testes and scrotum showed right testis is heterogeneous with significant hyperemia as compared to the left, suggestive of right sided orchitis. Moderate right sided hydrocele. Left testis is normal in appearance. Urology is consulted for orchitis. Patient seen and examined in the emergency department. present. Patient reports developing nausea and dry heaves approximately 3 days ago. He reports noticing right testicular/scrotal discomfort afterward. He reports subjective fever and chills at home and has been taking Tylenol. He noted worsening right testicular discomfort and swelling prompting evaluation. He has been voiding without difficulty. No dysuria or hematuria. He follows with urology, Dr. Lee, and underwent a cystoscopy on 06/27/2025 for bladder cancer surveillance. Allergies Allergy/AdvReac Type Severity Reaction Status Date / Time bee venom protein (honey bee) Allergy Severe Anaphylaxis Unverified 07/26/25 12:18 amoxicillin Allergy Intermediate MOUTH SORES Verified 07/26/25 12:18 Home Medications Medication Instructions Recorded Confirmed Type cholecalciferol (vitamin D3) 125 5,000 unit PO BID 12/03/18 07/26/25 History mcg (5,000 unit) tablet (Vitamin D3) loratadine 10 mg tablet (Claritin) 10 mg PO QAM 12/03/18 07/26/25 History timolol maleate 0.25 % eye drops 1 drp OPL BID 07/20/19 07/26/25 History glucosamine sulf dipot 1 cap PO PM 11/30/19 07/26/25 History chlr,msm,chond 550 mg-C 30 mg-eduar 1 mg capsule (Glucosamine Chondroitin) multivitamin 1 tab PO QPM 11/30/19 07/26/25 History lancets 33 gauge (OneTouch Delica #100 ea 08/22/20 02/03/25 Rx Lancets) epinephrine 0.3 mg/0.3 mL 0.3 mg (0.3 mL) IM Q4H PRN 03/27/22 07/26/25 Rx injection, auto-injector anaphylaxis #1 ea ascorbate calcium-bioflavonoid 1 tab PO QPM 01/28/23 07/26/25 History 1,000 mg-200 mg tablet (Monique-C with Bioflavonoids) blood sugar diagnostic (OneTouch #100 ea 02/25/23 02/03/25 Rx Ultra Test strips) blood-glucose meter (OneTouch #1 ea 02/25/23 02/03/25 Rx Ultra2 Meter) azithromycin 500 mg tablet 500 mg PO DAILY PRN Dental 08/03/24 07/26/25 Rx prophylaxis #2 tabs amlodipine 10 mg tablet 10 mg PO HS #90 tabs 01/18/25 07/26/25 Rx spironolactone 25 mg tablet 25 mg PO DAILY #90 tabs 01/25/25 07/26/25 Rx omeprazole 20 mg capsule,delayed 20 mg PO DAILY #30 caps 02/03/25 07/26/25 Rx release atorvastatin 10 mg tablet 10 mg PO DAILY #90 tabs 02/21/25 07/26/25 Rx lisinopril 20 1 tab PO BID #180 tabs 06/07/25 07/26/25 Rx mg-hydrochlorothiazide 12.5 mg tablet dutasteride 0.5 mg capsule 0.5 mg PO DAILY #90 caps 07/19/25 07/26/25 Rx tamsulosin 0.4 mg capsule 0.4 mg PO DAILY #90 caps 07/19/25 07/26/25 Rx dulaglutide 0.75 mg/0.5 mL 0.75 mg subcut WK 07/26/25 07/26/25 History subcutaneous pen injector omega 1-lpo-zui-fish oil 910 1 cap PO DAILY 07/26/25 07/26/25 History mg-1,400 mg capsule (Kathleen-3 Fish Oil) Patient History Medical History Bladder cancer Dx'ed 2000- s/p TURBT 2000 and 2010 History of colon polyps History of Mohs micrographic surgery for skin cancer ON NOSE Hx of basal cell carcinoma Hx of bladder cancer Glaucoma "PIGMENT INDUCED GLAUCOMA" LEFT EYE Hyperlipidemia Surgical History History of total knee replacement RT Status post total right knee replacement History of arthroscopy of right knee H/O oral surgery GROWTH REMOVED (BENIGN) History of cystoscopy History of biopsy of bladder S/P Mohs surgery for basal cell carcinoma History of colonoscopy History of tonsillectomy History of cataract extraction RT/LEFT History of hernia repair INGUINAL HERNIA REPAIR (RIGHT) History of bladder surgery TURBT X 2 (MALIGNANT 2000, BENIGN 2010) Family History Mother Family history of diabetes mellitus Colorectal cancer Gastric adenocarcinoma Hypertension Other No family history of adverse response to anesthesia Denies family history of Ovarian cancer Prostate cancer Myocardial infarction Breast cancer Social History Smoking Status: Former smoker Tobacco Type: Cigarettes Age Started Using Tobacco: 16; Age Quit Using Tobacco: 35; packs per day: 1; Second Hand Exposure: No; Do You Dip or Chew Tobacco: No; Hx Alcohol Use: No Hx Substance Use: No Preferred Language: Lao Communication Ability: Effective Visual Impairment: No Limitations Hearing Ability: Normal 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 Beliefs That Will Affect Care: None marital status: Single Current Living Situation: Family current occupational status: retired How many Children do You have: 2 Feels Safe at Home: Yes Childhood Exposure to Second-Hand Smoke: Yes Diet: regular caffeine: Yes (coffee) during the past year weight has: remained stable Dental Care, Regularly: Yes Physical Activity Frequency: Daily Physical Activity Frequency Comment: active Seatbelt Use: always Sunscreen Use: Yes Do you think of yourself as: straight/heterosexual Sexual Activity: has been sexually active within the last 12 months Gender Identity: Male Assistive Devices: None Review of Systems Review of Systems: All systems reviewed & are unremarkable except as noted in HPI & below Physical Exam Constitutional: no acute distress Respiratory: normal respiratory effort; no respiratory distress and no labored breathing Gastrointestinal (Abdomen): Inspection/Auscultation: abdomen normal to inspection Musculoskeletal: Head/Neck/Chest: normocephalic Neurologic: moves all extremities and awake Psychiatric: Orientation: alert and oriented x 3 Genitourinary: Left testis palpably normal. Right hemiscrotum is erythematous and edematous. Right testes tender to palpation, slightly firm. Results & Data Vital Signs (Past 12 Hours) Vital Signs Temp Pulse Pulse Resp BP BP Pulse Ox 07/26/25 12:31 63 07/26/25 12:20 66 18 128/66 94 07/26/25 09:21 36.5 C 71 17 119/66 97 O2 Del Method 07/26/25 12:31 07/26/25 12:20 Room Air 07/26/25 09:21 Room Air PG Care Time/CCT Total # of Minutes Spent Total Time Spent with Patient: Total time spent is greater than 50% in coordination of care (as documented) at patient's floor/unit and/or counseling patient: Coding Level of Care Code 00746 OP VST EST MOD 30 MIN Diagnoses Orchitis, right N45.2
--- NOTE | 2025-07-26 16:12 | History & Physical Report ---
Date of Service July 26, 2025 Assessment & Plan (1) DORA (acute kidney injury): (2) Orchitis and epididymitis: (3) Orchitis, right: (4) GERD (gastroesophageal reflux disease): (5) HTN (hypertension): (6) Diabetes mellitus: (7) BPH with obstruction/lower urinary tract symptoms: Plan #Orchitis (right-sided) - Testicular US: 1) The right testis is heterogeneous and shows significant hyperemia as compared to the left. Normal Doppler arterial waveforms are identified at the time of examination. The appearance is typical for a right- sided orchitis. This could also potentially be seen with testicular torsion/detorsion in the appropriate clinical setting. Clinical correlation will be essential. - WBC, 11.51; VSS - Urology already consulted, recommend managing it conservatively with antibiotics guided by Ur Cx results and supportive care - continue levofloxacin, 500 mg, IV, q24h - UA and Ur Cx pending - trend CBC AM labs - Pain mgmt - Tylenol, 1000 mg, TID, for mild pain - Morphine, 1 mg, IV, q3hr for moderate pain - Morphine, 2 mg, IV, q3hr for severe pain #DORA/mild hyponatremia - Cr, 1.61; BUN/Cr, 23.6 upon admission - NSS, 1L given in ER; continue NSS, 80 mL/hr, additional 1000 mL - held lisinopril-HCTZ - trend BMP AM labs Chronic conditions #BPH - continue tamsulosin and dutasteride #HTN - continue amlodipine but hold lisinopril-HCTZ #GERD - pantoprazole, 20 mg, PO, daily #HLD - continue atorvastatin #Allergies - continue loratadine Code status: Full code Disposition: Med-Surg FENGI: T2DM Carb consistent diet; NSS, 80 mL/hr, 1000 mL VTE Prophylaxis: Heparin, 5000 U, subQ, q12h History of Present Illness Chief Complaint: r. scrotal pain, N/V Primary Care Provider: AMBERLY Titus Patient is a 74 yo M w/ a PMHx of BPH, GERD, ED, heart murmur, T2DM, HTN, OA of knee, Hx of BCC, Hx of colon polyps, Hx of Mohs surgery, Hx of bladder cancer (s/p TURBT--2000 and 2010), HLD, s/p TKR (r. knee), Hx of r. inguinal hernia repair, Hx of cataract extraction (b/l), presenting today w/ 2-3 day Hx of r. s crotal tenderness, swelling, and redness, first noticed after he was vomiting early Sat morning. Patient states that while he was vomiting he felt something tear apart in his pelvic region. Although initially it was very painful (+10/10), patient does state that the pain seems to have subsided some. He received 4 mg morphine sulfate, IV at 10 am and feels like 6 hrs later his pain still well controlled. Upon reflection patient noted that he was moving some heavier boxes around 8 days ago and now wonders if that contributed to his current status. He also thought maybe he had eaten something bad initially. Patient denies any CP or palpitations, any dyspnea or cough, denies any AP though endorses some fullness/pressure of abdomen, denies any dysuria or urinary retention or increased ur. freq/urgency and denies any calf pain. Allergies Allergy/AdvReac Type Severity Reaction Status Date / Time bee venom protein (honey bee) Allergy Severe Anaphylaxis Unverified 07/26/25 12:18 amoxicillin Allergy Intermediate MOUTH SORES Verified 07/26/25 12:18 Home Medications Medication Instructions Recorded Confirmed Type cholecalciferol (vitamin D3) 125 5,000 unit PO BID 12/03/18 07/26/25 History mcg (5,000 unit) tablet (Vitamin D3) loratadine 10 mg tablet (Claritin) 10 mg PO QAM 12/03/18 07/26/25 History timolol maleate 0.25 % eye drops 1 drp OPL BID 07/20/19 07/26/25 History glucosamine sulf dipot 1 cap PO PM 11/30/19 07/26/25 History chlr,msm,chond 550 mg-C 30 mg-eduar 1 mg capsule (Glucosamine Chondroitin) multivitamin 1 tab PO QPM 11/30/19 07/26/25 History lancets 33 gauge (OneTouch Delica #100 ea 08/22/20 02/03/25 Rx Lancets) epinephrine 0.3 mg/0.3 mL 0.3 mg (0.3 mL) IM Q4H PRN 03/27/22 07/26/25 Rx injection, auto-injector anaphylaxis #1 ea ascorbate calcium-bioflavonoid 1 tab PO QPM 01/28/23 07/26/25 History 1,000 mg-200 mg tablet (Monique-C with Bioflavonoids) blood sugar diagnostic (OneTouch #100 ea 02/25/23 02/03/25 Rx Ultra Test strips) blood-glucose meter (OneTouch #1 ea 02/25/23 02/03/25 Rx Ultra2 Meter) azithromycin 500 mg tablet 500 mg PO DAILY PRN Dental 08/03/24 07/26/25 Rx prophylaxis #2 tabs amlodipine 10 mg tablet 10 mg PO HS #90 tabs 01/18/25 07/26/25 Rx spironolactone 25 mg tablet 25 mg PO DAILY #90 tabs 01/25/25 07/26/25 Rx omeprazole 20 mg capsule,delayed 20 mg PO DAILY #30 caps 02/03/25 07/26/25 Rx release atorvastatin 10 mg tablet 10 mg PO DAILY #90 tabs 02/21/25 07/26/25 Rx lisinopril 20 1 tab PO BID #180 tabs 06/07/25 07/26/25 Rx mg-hydrochlorothiazide 12.5 mg tablet dutasteride 0.5 mg capsule 0.5 mg PO DAILY #90 caps 07/19/25 07/26/25 Rx tamsulosin 0.4 mg capsule 0.4 mg PO DAILY #90 caps 07/19/25 07/26/25 Rx dulaglutide 0.75 mg/0.5 mL 0.75 mg subcut WK 07/26/25 07/26/25 History subcutaneous pen injector omega 5-mhf-pzy-fish oil 910 1 cap PO DAILY 07/26/25 07/26/25 History mg-1,400 mg capsule (Bertrand-3 Fish Oil) Past Med/Surg History Problem List (Updated 07/26/25 @ 17:08 by Hitesh Simpson DO) Pseudohyponatremia (Acute) DORA (acute kidney injury) (Acute) Cellulitis of scrotum (Acute) Orchitis and epididymitis (Acute) Orchitis, right GERD (gastroesophageal reflux disease) BPH with obstruction/lower urinary tract symptoms Erectile dysfunction (Acute) Primary osteoarthritis of right knee Heart murmur, aortic HTN (hypertension) (Chronic) Diabetes mellitus (Chronic) Medical History Bladder cancer Dx'ed 2001- s/p TURBT 2000 and 2010 History of colon polyps History of Mohs micrographic surgery for skin cancer ON NOSE Hx of basal cell carcinoma Hx of bladder cancer Glaucoma "PIGMENT INDUCED GLAUCOMA" LEFT EYE Hyperlipidemia Surgical History History of total knee replacement RT Status post total right knee replacement History of arthroscopy of right knee H/O oral surgery GROWTH REMOVED (BENIGN) History of cystoscopy History of biopsy of bladder S/P Mohs surgery for basal cell carcinoma History of colonoscopy History of tonsillectomy History of cataract extraction RT/LEFT History of hernia repair INGUINAL HERNIA REPAIR (RIGHT) History of bladder surgery TURBT X 2 (MALIGNANT 2000, BENIGN 2010) Family History Mother Family history of diabetes mellitus Colorectal cancer Gastric adenocarcinoma Hypertension Other No family history of adverse response to anesthesia Denies family history of Ovarian cancer Prostate cancer Myocardial infarction Breast cancer Social History Smoking Status: Never smoker Tobacco Type: Cigarettes Age Started Using Tobacco: 16; Age Quit Using Tobacco: 35; packs per day: 1; Second Hand Exposure: No ( A CHILD); Do You Dip or Chew Tobacco: No; Hx Alcohol Use: No Hx Substance Use: No Preferred Language: Belarusian Communication Ability: Effective Visual Impairment: No Limitations Hearing Ability: Normal 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 Beliefs That Will Affect Care: None marital status: Single Current Living Situation: Significant Other current occupational status: retired How many Children do You have: 2 Feels Safe at Home: Yes Childhood Exposure to Second-Hand Smoke: Yes Diet: regular caffeine: Yes (coffee) during the past year weight has: remained stable Dental Care, Regularly: Yes Physical Activity Frequency: Daily Physical Activity Frequency Comment: active Seatbelt Use: always Sunscreen Use: Yes Do you think of yourself as: straight/heterosexual Sexual Activity: has been sexually active within the last 12 months Gender Identity: Male Assistive Devices: Glasses Physical Exam Constitutional: WD/WN, vitals as above Respiratory: normal respiratory effort, lungs clear to auscultation Cardiovascular: Rate/Rhythm: regular rate and regular rhythm Heart Sounds: + murmur (heard at cardiac apex) Extremities: normal capillary refill; no calf tenderness and no pedal edema Gastrointestinal (Abdomen): Inspection/Auscultation: + abdomen distended and normal bowel sounds Percussion/Palpation: abdomen nontender and abdomen not rigid Psychiatric: A+Ox3, euthymic affect Genitourinary: + scrotum abnormality, + external erythe ma, + external tenderness and + edema r. scrotum--erythematous, edematous, tender to palpation l. scrotum non-edematous, non-erythematous, non-tender Results & Data Results & Data Vital Signs (Past 12 Hours) Vital Signs Temp Pulse Pulse Resp BP BP Pulse Ox 07/26/25 12:31 63 07/26/25 12:20 66 18 128/66 94 07/26/25 09:21 36.5 C 71 17 119/66 97 O2 Del Method 07/26/25 12:31 07/26/25 12:20 Room Air 07/26/25 09:21 Room Air Diagnostic Findings Scrotum Ultrasound 07/26/25 09:35 ULTRASOUND TESTES AND SCROTUM CLINICAL HISTORY: Right scrotal pain. COMPARISON STUDY: No priors TECHNIQUE: Real-time, grayscale, and color Doppler sonography of the testes and scrotum is performed. Images are reviewed in the transverse and longitudinal planes. FINDINGS: The testes are normal in size. The right testis is heterogeneous as compared to the left. The right testis measures 4.7 x 3.4 x 4.6 cm and the left testis measures 4.1 x 2.3 x 2.5 cm. No intratesticular mass is seen. The right testis is markedly hyperemic as compared to the left. Normal Doppler arterial and venous waveforms are identified in both testes. The epididymal heads are normal in appearance. The right epididymal head measures 1.8 cm in length and the left epididymal head measures 1.4 cm in length. A 1.0 cm epididymal head cyst is noted on the left. There is a moderate right-sided hydrocele. There is no significant hydrocele the left. No varicocele is identified. IMPRESSION: 1. The right testis is heterogeneous and shows significant hyperemia as compared to the left. Normal Doppler arterial waveforms are identified at the time of examination. The appearance is typical for a right-sided orchitis. This could also potentially be seen with testicular torsion/detorsion in the appropriate clinical setting. Clinical correlation will be essential. 2. The left testis is normal in appearance. 3. Moderate right-sided hydrocele.. ACT 112: Negative or not required by law. Electronically signed by: Albert Mccoy M.D. 07/26/2025 2:57 PM Abdomen/Pelvis CT 07/26/25 09:[address] WITH IV CONTRAST CT DOSE: 1485.68 mGy.cm HISTORY: eval for incarcerated inguinal hernia R TECHNIQUE: Multiaxial CT images of the abdomen and pelvis were performed following the IV administration of 90 cc of Optiray, A dose lowering technique was utilized adhering to the principles of ALARA. COMPARISON STUDY: 10/05/2007 FINDINGS: ABDOMEN: Liver, gallbladder, spleen, pancreas, and adrenal glands are unremarkable. Kidneys show no hydronephrosis or calculi bilaterally. There are a few cysts at the left kidney, largest at the upper pole measures 5 cm. There are scattered atherosclerotic calcifications. No abdominal aortic aneurysm. Pelvis: Prostate is enlarged and nodular and indents the urinary bladder base. Urinary bladder is mildly distended. There are multiple prostate calcifications. There is sigmoid diverticulosis. No acute diverticulitis. Normal appendix. No bowel inflammation or obstruction. No free fluid or free air. There is a tiny fat-containing periumbilical hernia. There are small fat-containing bilateral inguinal hernias, 3 cm on the right and 2.5 cm on the left. There is mild soft tissue stranding within the right inguinal hernia which is not present on the left suggesting mild inflammation at the right inguinal hernia. No fluid collection, hematoma, or abscess seen within the hernia. No bowel is contained within the hernia. No enlarged adenopathy seen. Osseous structures: There are mild degenerative changes of the lumbar spine and hips. IMPRESSION: 1. Possible mild inflammation at the small fat-containing right inguinal hernia. 2. No other acute findings seen. Otherwise as described. ACT 112: Negative or not required by law. The above report was generated using voice recognition software. It may contain grammatical, syntax or spelling errors. Electronically signed by: Vimal Love M.D. 07/26/2025 11:26 AM Supervising Physician Co-Signing Physician Notes I personally examined the patient and verified all woodruff points of history and exam, discussed case, and agree with decision making with Dr Smith right testicular pain. Ongoing for a couple of days. Came to the ER for further evaluation. Vitals noted, in general he is awake and alert pleasant no distress. HEENT normocephalic atraumatic mucous membranes moist. Breathing unlabored no accessory muscle use good effort. Skin without rashes pallor or icterus. Testicular exam as above and as per urology. Imaging noted. Orchitisantibiotics. Follow cultures. Anticipate improvement. Otherwise as above. DVT prophylaxis with heparin. 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
[2025-07-26] MEDS ORDERED: ONDANSETRON INJ 2 MG/ML 2 ML VIAL IV PRN (17:03)
[2025-07-26] MEDS ORDERED: MELATONIN 3 MG TAB PO PRN (17:03)
[2025-07-26] MEDS ORDERED: POLYETHYLENE (MIRALAX) 17 GM PACK PO PRN (17:03)
--- NOTE | 2025-07-26 17:45 | Billing Data ---
Date of Service July 26, 2025 Coding Level of Care Code 66614 INT INP/OBS CARE
[2025-07-26 17:58] LABS: Appearance Urine Clear (Clear); Bacteria Urine Automated None Seen (None Seen); Cast Urine Automated 0-2 /lpf (0-2); Epithelial Cell Urine Auto 0-2 /hpf (0-2); Glucose Urine UA Negative (Negative); RBC Urine Automated 0-2 /hpf (0-2); WBC Urine Automated 0-5 /hpf (0-5)
[2025-07-26] MEDS: ACETAMINOPHEN 500 MG TAB PO PRN (18:39)
[2025-07-26] MEDS: TAMSULOSIN HCL 0.4 MG CAP PO SCH (23:36)
[2025-07-26] MEDS: FINASTERIDE 5 MG TAB PO SCH (23:36)
[2025-07-26] MEDS: CHOLECALCIFEROL 125 MCG (5,000 UNITS) TAB PO SCH (23:36)
[2025-07-26] MEDS: HEPARIN SOD 5,000 UNIT/0.5 ML VIAL SQ SCH (23:37)
[2025-07-27 07:29] LABS: Hematocrit (blood only) 44.1 % (42.0-52.0); Hemoglobin 15.5 g/dl (14.0-18.0); Immature Granulocytes # (auto) 0.06 K/uL (0.01-0.20); Immature Granulocytes % (auto) 0.7 %; Mean Corpuscular Hemoglobin 31.9 pg (25.0-34.0); Mean Corpuscular Volume 90.7 fL (80.0-100.0); Platelet Count 169 K/uL (130-400); RDW Standard Deviation 44.5 fL (36.4-46.3); Red Blood Count 4.86 M/uL (4.70-6.10); White Blood Count 8.89 K/ul (4.8-10.8)
[2025-07-27 07:47] LABS: Anion Gap 10.0 (3-11); Blood Urea Nitrogen 29.0 mg/dl (6-23); Calcium 9.3 mg/dl (8.6-10.3); Carbon Dioxide 23.0 mmol/L (21-32); Chloride 101.0 mmol/L (98-107); Creatinine Clr Calc Pharmacy 68.6 ml/min; Glucose 135.0 mg/dl (70-99(Fasting)); Potassium 4.1 mmol/L (3.5-5.1); Sodium 134.0 mmol/L (136-145)
[2025-07-27 07:54] VITALS: BP 124/75; PULSE 67; RESP 16; O2SAT 94
[2025-07-27] MEDS: ATORVASTATIN 10 MG TAB PO SCH (08:08)
[2025-07-27] MEDS: SPIRONOLACTONE 25 MG TAB PO SCH (08:08)
[2025-07-27] MEDS: LORATADINE 10 MG TAB PO SCH (08:09)
--- NOTE | 2025-07-27 10:24 | Discharge Summary ---
Date of Service July 27, 2025 Admission HPI Per Admitting Provider Patient is a 74 yo M w/ a PMHx of BPH, GERD, ED, heart murmur, T2DM, HTN, OA of knee, Hx of BCC, Hx of colon polyps, Hx of Mohs surgery, Hx of bladder cancer (s/p TURBT--2000 and 2010), HLD, s/p TKR (r. knee), Hx of r. inguinal hernia repair, Hx of cataract extraction (b/l), presenting today w/ 2-3 day Hx of r. scrotal tenderness, swelling, and redness, first noticed after he was vomiting early Sat morning. Patient states that while he was vomiting he felt something tear apart in his pelvic region. Although initially it was very painful (+10/10), patient does state that the pain seems to have subsided some. He received 4 mg morphine sulfate, IV at 10 am and feels like 6 hrs later his pain still well controlled. Upon reflection patient noted that he was moving some heavier boxes around 8 days ago and now wonders if that contributed to his current status. He also thought maybe he had eaten something bad initially. Patient denies any CP or palpitations, any dyspnea or cough, denies any AP though endorses some fullness/pressure of abdomen, denies any dysuria or urinary retention or increased ur. freq/urgency and denies any calf pain. Admission Exam Per Admitting Provider Constitutional: WD/WN, vitals as above Respiratory: normal respiratory effort, lungs clear to auscultation Cardiovascular: Rate/Rhythm: regular rate and regular rhythm Heart Sounds: + murmur (heard at cardiac apex) Extremities: normal capillary refill; no calf tenderness and no pedal edema Gastrointestinal (Abdomen): Inspection/Auscultation: + abdomen distended and normal bowel sounds Percussion/Palpation: abdomen nontender and abdomen not rigid Psychiatric: A+Ox3, euthymic affect Genitourinary: + scrotum abnormality, + external erythe ma, + external tenderness and + edema r. scrotum--erythematous, edematous, tender to palpation l. scrotum non-edematous, non-erythematous, non-tender Principal Diagnosis Orchitis Discharge Exam Constitutional well developed and well nourished Eyes PERRL, conjunctivae normal, anicteric sclerae Respiratory normal respiratory effort, lungs clear to auscultation Cardiovascular RRR, no murmur, no edema Gastrointestinal (Abdomen) normal bowel sounds, soft, nontender, no hepatosplenomegaly Inspection/Auscultation: normal bowel sounds Musculoskeletal no cyanosis or clubbing, extremities motor strength 5/5 Skin no rashes, warm and dry Psychiatric A+Ox3, euthymic affect Genitourinary + scrotum abnormality (swollen and tender) Discharge Data Allergies Allergy/AdvReac Type Severity Reaction Status Date / Time bee venom protein (honey bee) Allergy Severe Anaphylaxis Unverified 07/26/25 12:18 amoxicillin Allergy Intermediate MOUTH SORES Verified 07/26/25 12:18 Consultations 07/26/25 15:22 Consult Urology Stat 07/26/25 15:23 ED Decision to Admit Stat Ordered Studies 07/26/25 09:35 US scrotum/testicle Stat 07/26/25 09:36 CT abd pelvis IV con only Stat Hospital Course (1) DORA (acute kidney injury): (2) Orchitis and epididymitis: (3) Orchitis, right: (4) GERD (gastroesophageal reflux disease): (5) HTN (hypertension): (6) Diabetes mellitus: (7) BPH with obstruction/lower urinary tract symptoms: Plan #Orchitis (right-sided) -Admitted ON for pain management and that he was on DORA. - stable ON - DC on Levaquin 500 daily for total 10 days. #DORA/mild hyponatremia - Cr 1.61 on admission-- improved on morning lab. Chronic issues: STABLE Plan: F.u with PCP 1 week after. F.u Urologist in outpatient. Total Time Total Time Spent Total Time Spent (In Minutes): <30 Discharge Plan Discharge Items Patient Disposition: Home - Self-Care Reason For Visit: ORCHITIS Discharge Diagnosis: Orchitis Condition on Discharge: Fair Activity: Resume your previous activity Non-emergency contact: Primary Care Provider and Urologist Call non-emergency contact if: your symptoms worsen Follow-up/Referrals: Yue Emerson CRNP [Primary Care Provider] - 08/03/25 10:00 am Diet: Regular Addtl Attending Provider Instructions: You were admitted to the hospital for observation overnight for acute Orchitis. You were treated with antibiotics aiming to cover common organism causing this for you. Now you are getting better after antibiotics, we are sending you home with same. Levaquin might give more strain to your ligaments and tendon, sometimes making them vulnerable for rupture, we suggest you to avoid heavy lifting, frequent lifting of your arms above shoulder and any activity that strains your ligaments like running, fast walking, heavy exercises. Otherwise anticipate your full recovery after 10 days course of antibiotics. A discharge s jessica will be sent to your primary care physician to ensure continuity of care. Please bring this discharge summary with you to your next office appointment so that your provider can review it at that time. Medications: Your medication list has been reviewed and reconciled upon discharge to ensure accuracy and continuity of care. An updated list of all your medications is in cluded with your hospital discharge paperwork. Please review this list closely and make note of any changes to your medications. 1. Levaquin 500 mg once daily for 9 more days. Follow up appointments: - Make a follow up appointment with your PCP within the next week. It is very important that you follow up with them shortly after discharge from the hospit al. - Keep all of your follow up appointments as already scheduled. If you cannot make an appointment, notify your provider. CONTACT YOUR PRIMARY CARE PROVIDER if you experience any of the following: - Difficulty following your treatment plan - Difficulty taking any of your medications CALL 911 OR GO TO THE EMERGENCY DEPARTMENT if you experience any of the following: - severe pain/ twisting in your scrotum - Sudden, severe abdominal pain or nausea/vomiting - Severe chest pain or chest pain that radiates to your jaw or arm - Sudden, severe shortness of breath or difficulty breathing Pending Studies at Discharge: No Stand-Alone Forms: My [facility], Smoking Cessation Medications and DC Order Prescriptions: New levofloxacin 500 mg tablet 500 mg PO DAILY 9 Days Qty: 9 0RF Continued loratadine [Claritin] 10 mg Tablet 10 mg PO QAM cholecalciferol (vitamin D3) [Vitamin D3] 5,000 unit Tablet 5,000 unit PO BID (DME) lancets [OneTouch Delica Lancets] 33 gauge [place] [facility] See Dose Instructions .ROUTE .MEDSUPPLY Qty: 100 2RF Dose Instruction: As directed Rx Instructions: TESTS once daily as needed (DME) OneTouch Ultra Test Strip See Rx Instructions .Route Qty: 100 5RF Rx Instructions: test 1x a day (DME) blood-glucose meter [OneTouch Ultra2 Meter] Misc See Rx Instructions .Route Qty: 1 0RF Rx Instructions: test 1 x a day amlodipine 10 mg tablet 10 mg PO HS Qty: 90 3RF spironolactone 25 mg tablet 25 mg PO DAILY Qty: 90 3RF atorvastatin 10 mg tablet 10 mg PO DAILY Qty: 90 3RF Patient Comments: QPM lisinopril-hydrochlorothiazide 20-12.5 mg tablet 1 tab PO BID Qty: 180 3RF tamsulosin 0.4 mg capsule 0.4 mg PO DAILY Qty: 90 3RF dutasteride 0.5 mg capsule 0.5 mg PO DAILY Qty: 90 3RF timolol maleate 0.25 % drops 1 drp OPL BID epinephrine 0.3 mg/0.3 mL auto-injector 0.3 mg IM Q4H PRN (Reason: anaphylaxis) Qty: 1 5RF omeprazole 20 mg capsule,delayed release(DR/EC) 20 mg PO DAILY Qty: 30 4RF azithromycin 500 mg tablet 500 mg PO DAILY PRN (Reason: Dental prophylaxis) Qty: 2 1RF Rx Instructions: take 1 tab prior to dental work Monique-C with Bioflavonoids 1,000-200 mg tablet 1 tab PO QPM multivitamin Tablet 1 tab PO QPM Glucosamine Chondroitin 550-30-1 mg Capsule 1 cap PO PM Bedias-3 Fish Oil 910-1,400 mg Capsule 1 cap PO DAILY dulaglutide 0.75 mg/0.5 mL pen injector 0.75 mg subcut WK Discharge Orders: Discharge Order (Routine); Ordered 07/27/25 Ordered By: January Boggs/Other Patient Handouts: What are Epididymitis and Orchitis?, ED Epididymitis, ED Orchitis Admission Data Admit Date/Time: 07/26/25 17:03 Attending Provider: Nik Rossi Admit Provider: León Smith Primary Care Provider: Yue Emerson Other Providers: Nik Rossi Other Interventions: Discharge Summary Assessment (RN) Last Done: 07/27/25 10:50 Supervising Physician Co-Signing Physician Notes I personally examined the patient and verified all woodruff points of history and exam, discussed case, and agree with decision making with Dr Nahomy murphy doing better feels up to going home. vitals noted nad heent nc at mmm breathing unlabored no accessory muscles good effort skin no rashes no pallor or icterus neuro no focal deficits. no inguinal pain or fullness, R testicle mildly swollen, mildly red, minimally tender no fluctuance orchitis - doing better. safe for home. finish course of PO abx as above
--- NOTE | 2025-07-27 12:23 | Billing Data ---
Date of Service July 27, 2025 Coding Level of Care Code 86469 IN/OBS DISCH 30 MIN/LESS
== END 2025-07-27 11:42 | disposition home or self-care (01) ==
LOC: ED 09:17 → INTOOBSV 17:03 → 3W 17:03